=== PATIENT | male | born 1930 | race Caucasian/White ===

== ENCOUNTER 2016-09-24 15:39 | Inpatient (IN) | payer MEDICARE, OTHER ==
[~2016-09-24] VITALS: Ht 167.6 cm; Wt 51.7 kg
[~2016-09-24 15:39] MED LIST: ADVAIR 250/501 EA INH; AMBIEN5 MG PO; AMLODIPINE10 MG PO; ASPIRIN81 MG PO; AUGMENTIN 875 M1 TAB PO; CELLCEPT500 MG PO; CLARITIN10 MG PO; COREG25 MG PO; COUMADIN1 M1 PO; COUMADIN2 M1 PO; COUMADIN2 MG PO; COUMADIN5 M2 PO; COUMADIN5 MG PO; COUMADIN6 M2 PO; CYCLOSPORINE25 M2 PO; Coumadin5 MG PO; DIOVAN80 M1 PO; DULCOLAX5 MG PO; FERROUS SULFAT325 M1 PO; FLOMAX0.4 MG; FLONASE 0.05% 121 EA NAS; FLUDROCORTISON0.1 MG PO; FUROSEMIDE40 MG PO; GENGRAF PO; GENGRAF100 MG; GENGRAF100 MG PO; HYDROCODONE BIT1 T11 PO; HYTRIN2 MG PO; IRON325 M1 PO; LASIX80 MG PO; LEVAQUIN750 MG PO; LISINOPRIL10 M1 PO; LISINOPRIL20 MG PO; Lasix80 MG PO; MAG-OX 400400 MG PO; MAGNESIUM400 M1 PO; MIRALAX17 GM/DOSE PO; MOM30 M1 PO; MYCOPHENOLATE500 MG PO; MYCOPHENOLIC A360 M1 PO; NEORAL25 MG PO; OXYGEN NAS; PHOS-NAK1 PDR PO; PREVACID30 M1 PO; PROAIR HFA0.09 MG/AC INH; PROTONIX40 MG PO; REMERON15 M1 PO; TERAZOSIN1 MG PO; VIBRAMYCIN100 MG PO; WELCHOL625 MG PO; ZITHROMAX250 MG PO; ZOLOFT25 MG PO; ZYRTEC10 M1 PO; [UNRECOGNIZED DRUG - OTHER]
[2016-09-24 15:44] VITALS: BP 200/70
[2016-09-24 16:05] LABS: BASO % 0.2 % (0.0-1.0); EOS # 0.1 10*3/uL (0.0-0.4); EOS % 0.5 % (1.0-4.0); HEMATOCRIT 35.7 % (42.0-52.0); HEMOGLOBIN 11.1 g/dl (14.0-18.0); IG # 0.1 10*3/uL (0.0-0.1); LYMPH # 0.8 10*3/uL (1.3-4.4); LYMPH % 6.4 % (27.0-41.0); MEAN CELL VOLUME 99.2 fl (80.0-94.0); MEAN CORPUSCULAR HGB 30.8 pg (27.0-31.0); MEAN CORPUSCULAR HGB CONC 31.1 g/dl (33.0-37.0); MEAN PLATELET VOLUME 9.6 fl (9.6-12.3); MONO # 0.9 10*3/uL (0.1-1.0); MONO % 7.1 % (3.0-9.0); NEUT # 10.9 10*3/uL (2.3-7.9); NEUT % 85.3 % (47.0-73.0); PLATELET COUNT AUTOMATED 191 10*3/uL (130-400); RED CELL DISTRI WIDTH 14.2 % (0-14.5); WHITE BLOOD COUNT 12.8 10*3/uL (4.8-10.8)
[2016-09-24 16:14] LABS: INTERNATIONAL NORM RATIO 1.5 (2.0-3.5); PROTHROMBIN TIME 15.9 SECONDS (9.0-12.4)
[2016-09-24 16:22] LABS: ALBUMIN 3.5 gm/dl (3.1-4.5); BILIRUBIN, TOTAL 0.7 mg/dl (0.2-1.0); C-REACTIVE PROTEIN 2.67 MG/DL (0-0.3); CKMB 0.8 ng/ml (0.5-3.6); MAGNESIUM 1.4 mg/dL (1.5-2.1); POTASSIUM 3.7 mmol/L (3.5-5.1); TROPONIN I 0.02 ng/ml (<0.045)
[2016-09-24 18:54] VITALS: BP 149/57
[2016-09-25] VITALS: BP 137/50
[2016-09-25 06:31] LABS: BASO % 0.2 % (0.0-1.0); EOS % 0.2 % (1.0-4.0); HEMATOCRIT 31.3 % (42.0-52.0); HEMOGLOBIN 9.7 g/dl (14.0-18.0); IG # 0.1 10*3/uL (0.0-0.1); LYMPH # 1.1 10*3/uL (1.3-4.4); LYMPH % 9.6 % (27.0-41.0); MEAN CELL VOLUME 100.3 fl (80.0-94.0); MEAN CORPUSCULAR HGB 31.1 pg (27.0-31.0); MEAN PLATELET VOLUME 9.8 fl (9.6-12.3); MONO # 1.1 10*3/uL (0.1-1.0); MONO % 9.6 % (3.0-9.0); NEUT # 9.3 10*3/uL (2.3-7.9); NEUT % 79.8 % (47.0-73.0); PLATELET COUNT AUTOMATED 167 10*3/uL (130-400); RED BLOOD COUNT 3.12 10*6/uL (4.50-5.90); RED CELL DISTRI WIDTH 14.2 % (0-14.5); WHITE BLOOD COUNT 11.7 10*3/uL (4.8-10.8)
[2016-09-25 07:01] LABS: FREE T4 1.04 ng/dl (0.76-1.46); MAGNESIUM 2.3 mg/dL (1.5-2.1); PHOSPHOROUS 3.3 mg/dL (2.5-4.9)
[2016-09-25 07:04] LABS: INTERNATIONAL NORM RATIO 1.4 (2.0-3.5); PROTHROMBIN TIME 14.9 SECONDS (9.0-12.4)
[2016-09-25 07:08] LABS: THYROID STIM HORMONE (HS) 0.547 uIU/ml (0.358-4.75)
[2016-09-25 07:23] LABS: FOLIC ACID 10.22 ng/mL (>5.38); VITAMIN D, 25-HYDROXY 9.4 ng/mL (30-100)
[2016-09-25 07:55] VITALS: BP 135/47
[2016-09-25] MEDS ORDERED: COUMADIN1 M1 PO (10:16)
[2016-09-25] MEDS ORDERED: COUMADIN6 M2 PO (10:16)
[2016-09-25 11:47] VITALS: BP 130/46
[2016-09-25] MEDS ORDERED: COUMADIN7.5 M1 PO (11:51)
== END 2016-09-25 13:20 | disposition home or self-care (01) | DRG 871 ==
LOC: ED 15:39 → EDHOLD 17:58 → 4E 18:26
PROVIDERS: Emergency Medicine; Internal Medicine
DX: A41.9 Sepsis, unspecified organism (principal); N18.6 End stage renal disease; I13.2 Hypertensive heart and chronic kidney disease with heart failure and with stage 5 chronic kidney disease, or end stage renal disease; D68.59 Other primary thrombophilia; E87.8 Other disorders of electrolyte and fluid balance, not elsewhere classified; E83.42 Hypomagnesemia; K74.60 Unspecified cirrhosis of liver; I50.32 Chronic diastolic (congestive) heart failure; I48.0 Paroxysmal atrial fibrillation; K21.9 Gastro-esophageal reflux disease without esophagitis; E78.5 Hyperlipidemia, unspecified; Z96.1 Presence of intraocular lens; K52.9 Noninfective gastroenteritis and colitis, unspecified; N40.1 Benign prostatic hyperplasia with lower urinary tract symptoms; D53.9 Nutritional anemia, unspecified; R73.9 Hyperglycemia, unspecified; Z90.49 Acquired absence of other specified parts of digestive tract; Z83.3 Family history of diabetes mellitus; Z80.8 Family history of malignant neoplasm of other organs or systems; Z82.49 Family history of ischemic heart disease and other diseases of the circulatory system; Z82.0 Family history of epilepsy and other diseases of the nervous system; Z98.49 Cataract extraction status, unspecified eye; Z86.718 Personal history of other venous thrombosis and embolism; Z79.01 Long term (current) use of anticoagulants; Z79.899 Other long term (current) drug therapy; Z86.73 Personal history of transient ischemic attack (TIA), and cerebral infarction without residual deficits; T62.91XA Toxic effect of unspecified noxious substance eaten as food, accidental (unintentional), initial encounter; R11.2 Nausea with vomiting, unspecified

== ENCOUNTER 2016-10-04 10:15 | Inpatient (IN) | payer MEDICARE, OTHER ==
[~2016-10-04] VITALS: Ht 167.6 cm; Wt 51.0 kg
[~2016-10-04 10:15] MED LIST changes: +COUMADIN7.5 M1 PO
[2016-10-04 10:23] VITALS: BP 106/40
[2016-10-04 11:38] LABS: BASO % 0.2 % (0.0-1.0); HEMATOCRIT 35.4 % (42.0-52.0); IG # 0.1 10*3/uL (0.0-0.1); LYMPH # 0.9 10*3/uL (1.3-4.4); LYMPH % 6.7 % (27.0-41.0); MEAN CELL VOLUME 97.8 fl (80.0-94.0); MEAN CORPUSCULAR HGB 30.4 pg (27.0-31.0); MEAN CORPUSCULAR HGB CONC 31.1 g/dl (33.0-37.0); MEAN PLATELET VOLUME 9.3 fl (9.6-12.3); MONO # 0.9 10*3/uL (0.1-1.0); MONO % 7.3 % (3.0-9.0); NEUT # 10.8 10*3/uL (2.3-7.9); NEUT % 85.2 % (47.0-73.0); PLATELET COUNT AUTOMATED 266 10*3/uL (130-400); RED BLOOD COUNT 3.62 10*6/uL (4.50-5.90); RED CELL DISTRI WIDTH 13.4 % (0-14.5); WHITE BLOOD COUNT 12.7 10*3/uL (4.8-10.8)
[2016-10-04 11:47] LABS: INTERNATIONAL NORM RATIO 2.7 (2.0-3.5); PROTHROMBIN TIME 30.8 SECONDS (9.0-12.4)
[2016-10-04 11:57] LABS: ALBUMIN 3.2 gm/dl (3.1-4.5); ALKALINE PHOSPHATASE 124 U/L (45-117); BILIRUBIN, TOTAL 0.8 mg/dl (0.2-1.0); BUN 19 mg/dl (7-24); CARBON DIOXIDE 32 mmol/L (21-32); CHLORIDE 94 mmol/L (98-107); EST GLOM FILT AFRICAN AMERICAN 34 ml/min; GLUCOSE 97 mg/dL (65-99); MAGNESIUM 1.6 mg/dL (1.5-2.1); POTASSIUM 4.2 mmol/L (3.5-5.1); SGOT/AST 19 IU/L (3-35); SGPT/ALT 16 U/L (12-78); SODIUM 136 mmol/L (136-145); TOTAL PROTEIN 8.7 gm/dL (6.4-8.2)
[2016-10-04 12:00] LABS: TROPONIN I < 0.015 ng/ml (<0.045)
[2016-10-04 12:03] LABS: THYROID STIM HORMONE (HS) 0.392 uIU/ml (0.358-4.75)
[2016-10-04 13:13] VITALS: BP 111/55
[2016-10-04 13:55] VITALS: BP 126/60
[2016-10-04 14:00] VITALS: BP 142/50
[2016-10-04 16:00] VITALS: BP 134/80
[2016-10-04 20:00] VITALS: BP 140/51
[2016-10-05] VITALS: BP 134/53
[2016-10-05 06:50] LABS: BASO % 0.2 % (0.0-1.0); EOS % 0.2 % (1.0-4.0); HEMATOCRIT 30.1 % (42.0-52.0); HEMOGLOBIN 9.2 g/dl (14.0-18.0); IG # 0.1 10*3/uL (0.0-0.1); LYMPH # 0.8 10*3/uL (1.3-4.4); LYMPH % 5.7 % (27.0-41.0); MEAN CORPUSCULAR HGB 30.3 pg (27.0-31.0); MEAN CORPUSCULAR HGB CONC 30.6 g/dl (33.0-37.0); MEAN PLATELET VOLUME 9.4 fl (9.6-12.3); MONO # 0.9 10*3/uL (0.1-1.0); MONO % 6.7 % (3.0-9.0); NEUT # 11.4 10*3/uL (2.3-7.9); NEUT % 86.6 % (47.0-73.0); PLATELET COUNT AUTOMATED 268 10*3/uL (130-400); RED BLOOD COUNT 3.04 10*6/uL (4.50-5.90); RED CELL DISTRI WIDTH 13.6 % (0-14.5); WHITE BLOOD COUNT 13.2 10*3/uL (4.8-10.8)
[2016-10-05 07:05] LABS: ALBUMIN 2.7 gm/dl (3.1-4.5); BILIRUBIN, TOTAL 0.6 mg/dl (0.2-1.0); MAGNESIUM 1.4 mg/dL (1.5-2.1); PHOSPHOROUS 3.1 mg/dL (2.5-4.9); POTASSIUM 4.6 mmol/L (3.5-5.1); TOTAL PROTEIN 7.3 gm/dL (6.4-8.2)
[2016-10-05 07:21] LABS: INTERNATIONAL NORM RATIO 3.4 (2.0-3.5); PROTHROMBIN TIME 38.9 SECONDS (9.0-12.4)
[2016-10-05 08:00] VITALS: BP 152/53
[2016-10-05] MEDS ORDERED: CYCLOSPORINE25 M2 PO (08:55)
[2016-10-05 09:58] LABS: BILIRUBIN NEGATIVE (NEGATIVE); BLOOD 1+ (NEGATIVE); CLARITY CLEAR (CLEAR); COLOR YELLOW (YELLOW); GLUCOSE NEGATIVE (NEGATIVE); KETONE NEGATIVE (NEGATIVE); LEUKO ESTERASE TRACE (NEGATIVE); NITRITE NEGATIVE (NEGATIVE); PH 7.5 (5.0-9.0); PROTEIN 2+ (NEGATIVE); SPECIFIC GRAVITY <= 1.005 (1.005-1.030)
[2016-10-05 10:15] LABS: BACTERIA 1+; RBC 16-20 rbc/hpf (0-2); URINE REFLEX COMMENT YES (NO)
[2016-10-05 12:00] VITALS: BP 151/54
[2016-10-05 16:00] VITALS: BP 131/86
[2016-10-05 20:00] VITALS: BP 145/49
[2016-10-06] VITALS: BP 127/58
[2016-10-06 06:41] LABS: BASO % 0.2 % (0.0-1.0); EOS # 0.1 10*3/uL (0.0-0.4); HEMATOCRIT 30.3 % (42.0-52.0); HEMOGLOBIN 9.3 g/dl (14.0-18.0); IG # 0.1 10*3/uL (0.0-0.1); MEAN CELL VOLUME 99.7 fl (80.0-94.0); MEAN CORPUSCULAR HGB 30.6 pg (27.0-31.0); MEAN CORPUSCULAR HGB CONC 30.7 g/dl (33.0-37.0); MEAN PLATELET VOLUME 9.6 fl (9.6-12.3); MONO % 9.5 % (3.0-9.0); NEUT # 8.5 10*3/uL (2.3-7.9); NEUT % 79.8 % (47.0-73.0); PLATELET COUNT AUTOMATED 293 10*3/uL (130-400); RED BLOOD COUNT 3.04 10*6/uL (4.50-5.90); RED CELL DISTRI WIDTH 13.5 % (0-14.5); WHITE BLOOD COUNT 10.7 10*3/uL (4.8-10.8)
[2016-10-06 07:01] LABS: ALBUMIN 2.5 gm/dl (3.1-4.5); MAGNESIUM 1.7 mg/dL (1.5-2.1); PHOSPHOROUS 3.3 mg/dL (2.5-4.9); POTASSIUM 4.4 mmol/L (3.5-5.1)
[2016-10-06 08:00] VITALS: BP 128/52; BP 134/80
[2016-10-06 09:34] LABS: PROTHROMBIN TIME 70.1 SECONDS (9.0-12.4)
[2016-10-06 09:37] LABS: INTERNATIONAL NORM RATIO 5.9 (2.0-3.5)
[2016-10-06 12:00] VITALS: BP 134/50
[2016-10-06 16:00] VITALS: BP 140/54
[2016-10-06 20:00] VITALS: BP 134/54
[2016-10-07] VITALS: BP 144/61
[2016-10-07 06:27] LABS: ALBUMIN 2.3 gm/dl (3.1-4.5); PHOSPHOROUS 2.5 mg/dL (2.5-4.9); POTASSIUM 4.1 mmol/L (3.5-5.1)
[2016-10-07 06:36] LABS: INTERNATIONAL NORM RATIO 4.4 (2.0-3.5); PROTHROMBIN TIME 51.6 SECONDS (9.0-12.4)
[2016-10-07 08:00] VITALS: BP 160/58
== END 2016-10-07 11:45 | disposition home or self-care (01) | DRG 871 ==
LOC: ED 10:15 → EDHOLD 13:32 → 4E 13:32
PROVIDERS: Emergency Medicine; Internal Medicine; Internal Medicine Hospice and Palliative Medicine
PROC: 5A1D60Z (ICD-10-PCS; principal; 2016-10-04)
DX: A41.9 Sepsis, unspecified organism (principal); J18.9 Pneumonia, unspecified organism; E43 Unspecified severe protein-calorie malnutrition; I13.2 Hypertensive heart and chronic kidney disease with heart failure and with stage 5 chronic kidney disease, or end stage renal disease; N18.6 End stage renal disease; D68.59 Other primary thrombophilia; Z94.4 Liver transplant status; I48.0 Paroxysmal atrial fibrillation; I50.32 Chronic diastolic (congestive) heart failure; K74.60 Unspecified cirrhosis of liver; Z68.1 Body mass index [BMI] 19.9 or less, adult; E78.5 Hyperlipidemia, unspecified; K21.9 Gastro-esophageal reflux disease without esophagitis; D63.8 Anemia in other chronic diseases classified elsewhere; D53.9 Nutritional anemia, unspecified; Z96.1 Presence of intraocular lens; F32.9 Major depressive disorder, single episode, unspecified; N40.1 Benign prostatic hyperplasia with lower urinary tract symptoms; E55.9 Vitamin D deficiency, unspecified; Z86.73 Personal history of transient ischemic attack (TIA), and cerebral infarction without residual deficits; Z90.49 Acquired absence of other specified parts of digestive tract; Z95.2 Presence of prosthetic heart valve; Z98.49 Cataract extraction status, unspecified eye; Z87.891 Personal history of nicotine dependence; Z86.718 Personal history of other venous thrombosis and embolism; Z79.01 Long term (current) use of anticoagulants; Z79.899 Other long term (current) drug therapy

== ENCOUNTER → 2016-11-08 | Outpatient (CLI) | payer MEDICARE, OTHER ==
[2016-11-08 06:32] LABS: INTERNATIONAL NORM RATIO 1.6 (2.0-3.5); PROTHROMBIN TIME 17.4 SECONDS (9.0-12.4)
== END | disposition home or self-care (01) ==
LOC: LAB 05:16
PROVIDERS: Family Medicine Adult Medicine
DX: I48.91 Unspecified atrial fibrillation (principal)

== ENCOUNTER → 2017-01-05 | Outpatient (CLI) | payer MEDICARE, OTHER ==
[~2017-01-05] MED LIST changes: +ZOFRAN ODT4 MG SL
== END | disposition home or self-care (01) ==
LOC: RAD 09:39
DX: J90 Pleural effusion, not elsewhere classified (principal); I50.32 Chronic diastolic (congestive) heart failure; Z87.891 Personal history of nicotine dependence

== ENCOUNTER 2017-01-06 13:59 | Emergency (ER) | payer MEDICARE, OTHER ==
[~2017-01-06] VITALS: Ht 167.6 cm; Wt 53.1 kg
[~2017-01-06 13:59] MED LIST changes: -ZOFRAN ODT4 MG SL
[2017-01-06 14:35] LABS: BASO % 0.2 % (0.0-1.0); EOS # 0.1 10*3/uL (0.0-0.4); EOS % 1.2 % (1.0-4.0); HEMATOCRIT 36.5 % (42.0-52.0); HEMOGLOBIN 11.4 g/dl (14.0-18.0); LYMPH # 1.6 10*3/uL (1.3-4.4); LYMPH % 17.2 % (27.0-41.0); MEAN CELL VOLUME 100.6 fl (80.0-94.0); MEAN CORPUSCULAR HGB 31.4 pg (27.0-31.0); MEAN CORPUSCULAR HGB CONC 31.2 g/dl (33.0-37.0); MEAN PLATELET VOLUME 9.6 fl (9.6-12.3); MONO # 0.9 10*3/uL (0.1-1.0); MONO % 9.5 % (3.0-9.0); NEUT # 6.8 10*3/uL (2.3-7.9); NEUT % 71.6 % (47.0-73.0); PLATELET COUNT AUTOMATED 213 10*3/uL (130-400); RED BLOOD COUNT 3.63 10*6/uL (4.50-5.90); RED CELL DISTRI WIDTH 14.5 % (0-14.5); WHITE BLOOD COUNT 9.5 10*3/uL (4.8-10.8)
[2017-01-06 14:43] LABS: INTERNATIONAL NORM RATIO 2.2 (2.0-3.5)
[2017-01-06 14:55] LABS: ALBUMIN 3.4 gm/dl (3.1-4.5); CKMB 0.8 ng/ml (0.5-3.6); CREATININE 4.16 mg/dL (0.70-1.30); MAGNESIUM 2.4 mg/dL (1.5-2.1); POTASSIUM 4.6 mmol/L (3.5-5.1); TOTAL PROTEIN 8.4 gm/dL (6.4-8.2); TROPONIN I 0.019 ng/ml (<0.045)
[2017-01-06] MEDS ORDERED: ZOFRAN ODT4 MG SL (16:18)
== END 2017-01-06 16:54 | disposition home or self-care (01) ==
LOC: ED 13:59
PROVIDERS: Physician Assistant
DX: K52.9 Noninfective gastroenteritis and colitis, unspecified (principal); Z79.899 Other long term (current) drug therapy; Z79.02 Long term (current) use of antithrombotics/antiplatelets; Z87.891 Personal history of nicotine dependence

== ENCOUNTER 2017-02-07 15:28 | Emergency (ER) | payer MEDICARE, OTHER ==
[~2017-02-07] VITALS: Ht 167.6 cm; Wt 54.4 kg
[~2017-02-07 15:28] MED LIST changes: +ZOFRAN ODT4 MG SL
== END 2017-02-07 16:18 | disposition home or self-care (01) ==
LOC: ED 15:28
DX: Z48.00 Encounter for change or removal of nonsurgical wound dressing (principal); L98.8 Other specified disorders of the skin and subcutaneous tissue; Z90.49 Acquired absence of other specified parts of digestive tract; Z98.890 Other specified postprocedural states; Z79.01 Long term (current) use of anticoagulants; Z79.899 Other long term (current) drug therapy; Z87.891 Personal history of nicotine dependence

== ENCOUNTER 2017-03-04 18:40 | Inpatient (IN) | payer MEDICARE, OTHER ==
[~2017-03-04] VITALS: Ht 167.6 cm; Wt 50.8 kg
--- NOTE | ~2017-03-04 | CON ---
[place], [place] REPORT OF CONSULTATION NAME: SCOTT OTTO [facility] #: [id number] UNIT #: [id number] ROOM: 409 DOCTOR: DELROY MCGUIRE MD BIRTHDATE: [birth year] DOS: 03/05/2017 REASON FOR CONSULTATION: Management of dialysis/patient known to you. HISTORY OF PRESENT ILLNESS: This patient is an 87-year-old male with past medical history of end-stage renal disease. He is on hemodialysis Tuesday, Tuesday and Tuesday at [facility] in [place] under the care of our practice. He has a history of anemia, cirrhosis, status post orthotopic liver transplant as well as hypertension. I am not clear of the details, but it seems after dialysis the patient had not been feeling well and had a brief unresponsive episodes. I discussed with the dialysis nurse today that his treatment went without difficulty. Apparently, he was admitted overnight and there were concerns that the patient was septic. He was started on a number of antibiotics, although he did not appear to have a fever and his white count was normal. It seems he had a CAT scan of the chest, which showed questionable pneumonia. He was admitted for further evaluation. He currently is awake and alert and looks fairly well. He denied any complaints to me. He denied cough, shortness of breath, fevers, chills, night sweats or chest pain. He denied nausea, vomiting or diarrhea. He states his appetite is fair. ALLERGIES: No known drug allergies. MEDICATIONS: Reviewed and included cyclosporine, CellCept, lisinopril, Coreg, Coumadin to name a few. PAST MEDICAL HISTORY: 1. End-stage renal disease, on hemodialysis as stated above. 2. Anemia. 3. BPH. 4. Diastolic dysfunction. 5. Depression. 6. Upper extremity AV fistula. 7. Hypertension. 8. GERD. 9. History of TIA. 10. Hyperlipidemia. 11. Interstitial fibrosis. 12. Paroxysmal atrial fibrillation. 13. Status sort of orthotopic liver transplant. 14. Adenoidectomy. 15. Appendectomy. 16. Tonsillectomy. 17. Cataract extraction. FAMILY HISTORY: Negative for chronic kidney disease, otherwise noncontributory. Noted positive for diabetes. SOCIAL HISTORY: No reported tobacco, alcohol or illicit drugs. He does have a history of previous tobacco abuse. [place], [place] REPORT OF CONSULTATION NAME: SCOTT OTTO UNIT #: [id number] ROOM: 409 DOCTOR: MAYNOR HEATONDELROY Anne BIRTHDATE: [birth year] REVIEW OF SYSTEMS: As per HPI, otherwise a 10-point review of systems was reviewed and was negative or limited. PHYSICAL EXAMINATION: VITAL SIGNS: Temperature 98.4, pulse 75, respiratory rate 16, blood pressure 112/44. GENERAL: He is awake, alert, comfortable, in no acute distress. HEENT: Shows no JVD. Sclerae are anicteric. Mucous membranes are moist. Pharynx is clear. NECK: Supple. Trachea is midline. There is no neck lymphadenopathy. There is no thyromegaly. LUNGS: Diminished breath sounds, appreciable wheeze. There is no tactile fremitus. He is not using accessory muscles of respiration. HEART: Normal S1, S2. No rub, thrill or gallop. ABDOMEN: Soft, nontender. There is no organomegaly or rigidity. There is no rebound or guarding. There is no CVA tenderness. EXTREMITIES: Had no edema. There is no lower extremity lymphadenopathy. Distal pulses are 2+. SKIN: Showed no rashes. There was no petechiae or purpura. Skin temperature is warm. NEUROLOGIC: He is awake, alert, following commands. Cranial nerves appeared to be intact. LABORATORY DATA: Hemoglobin 10.4, white count of 9.2, platelets 174. Glucose 95, BUN 29, creatinine 3.5, sodium 135, potassium 4.0, calcium 8.3. IMPRESSION: 1. End-stage renal disease, on hemodialysis Tuesday, Tuesday and Tuesday through an upper extremity arteriovenous fistula. 2. Questionable pneumonia. 3. Anemia of chronic disease. 4. Hypertension. 5. Status post orthotopic liver transplant. PLAN: 1. Continue home medications. 2. Dose meds for end-stage renal disease. 3. Standard renal diet. 4. We will continue the patient his normal dialysis schedule. 5. The patient appears to be stable. There is no obvious infection noted with a normal white count. No fever. He has been started on broad-spectrum antibiotics. Would recommend discharge from the hospital. Thank you for this consultation. [place], [place] REPORT OF CONSULTATION NAME: SCOTT OTTO UNIT #: [id number] ROOM: 409 DOCTOR: DELROY MCGUIRE MD BIRTHDATE: [birth year] DELROY MCGUIRE MD CM:CONSTR:REPORT OF CONSULTATION [id number] 03/05/17 1600 interface
--- NOTE | ~2017-03-04 | PR ---
[place], [place] PROGRESS NOTE [id number] UN[facility] #: [id number] ROOM: 409 DOCTOR: DELROY MCGUIRE MD BIRTHDATE: [birth year] DOS: SUBJECTIVE: The patient was seen and examined. He is awake and alert. Denies shortness of breath, nausea or vomiting. States he feels well. OBJECTIVE: VITAL SIGNS: Temperature 98.2, pulse 79, respiration 20, blood pressure 150/56. HEENT: Shows no JVD. LUNGS: Diminished breath sounds with occasional wheeze. HEART: Normal S1, S2. No rub, thrill or gallop. ABDOMEN: Soft, nontender. There is no organomegaly. EXTREMITIES: Showed no edema. SKIN: Showed no rash. LABORATORY DATA: Blood cultures are negative to date. Hemoglobin 9.4, white count of 5.7, platelets of 150. BUN 48, creatinine 4.5, sodium 133, potassium 4.5, carbon dioxide 24, calcium 8.7. IMPRESSION: 1. End-stage renal disease on hemodialysis Tuesday, Tuesday, Tuesday through upper extremity AV fistula. 2. Questionable pneumonia. 3. Anemia of chronic disease. 4. Hypertension. 5. Status post orthotopic liver transplant. PLAN: 1. We will plan for dialysis tomorrow. 2. Dose medications for end-stage renal disease. 3. We will give Epogen with dialysis. 4. Continue regular medications. 5. Antibiotics per the primary service. DELROY MCGUIRE MD CM:PNTRANS [id number] DELROY MCGUIRE MD 03/06/17 1714 interface
[2017-03-04 18:48] VITALS: BP 129/54
[2017-03-04 19:24] LABS: BASO % 0.1 % (0.0-1.0); HEMATOCRIT 37.2 % (42.0-52.0); HEMOGLOBIN 11.6 g/dl (14.0-18.0); LYMPH # 0.5 10*3/uL (1.3-4.4); MEAN CORPUSCULAR HGB 31.2 pg (27.0-31.0); MEAN CORPUSCULAR HGB CONC 31.2 g/dl (33.0-37.0); MEAN PLATELET VOLUME 10.4 fl (9.6-12.3); MONO # 1.1 10*3/uL (0.1-1.0); MONO % 8.4 % (3.0-9.0); NEUT # 11.7 10*3/uL (2.3-7.9); NEUT % 86.9 % (47.0-73.0); PLATELET COUNT AUTOMATED 202 10*3/uL (130-400); RED BLOOD COUNT 3.72 10*6/uL (4.50-5.90); RED CELL DISTRI WIDTH 14.1 % (0-14.5); WHITE BLOOD COUNT 13.5 10*3/uL (4.8-10.8)
[2017-03-04 20:00] LABS: ALBUMIN 3.2 gm/dl (3.1-4.5); CREATININE 2.8 mg/dL (0.70-1.30); TOTAL PROTEIN 7.5 gm/dL (6.4-8.2); TROPONIN I 0.035 ng/ml (<0.045)
[2017-03-04 21:30] VITALS: BP 104/46
[2017-03-04 22:00] VITALS: BP 103/52
[2017-03-04 22:59] LABS: BILIRUBIN NEGATIVE (NEGATIVE); BLOOD NEGATIVE (NEGATIVE); CLARITY SL CLOUDY (CLEAR); COLOR YELLOW (YELLOW); GLUCOSE NEGATIVE (NEGATIVE); KETONE NEGATIVE (NEGATIVE); LEUKO ESTERASE TRACE (NEGATIVE); NITRITE NEGATIVE (NEGATIVE); UROBILINOGEN 0.2 E.U./dl (0.2-1.0)
[2017-03-04 23:00] VITALS: BP 110/40
[2017-03-04 23:06] LABS: BACTERIA TRACE
[2017-03-05 00:24] LABS: INTERNATIONAL NORM RATIO 1.9 (2.0-3.5)
[2017-03-05 06:17] LABS: BASO % 0.2 % (0.0-1.0); EOS % 0.1 % (1.0-4.0); HEMATOCRIT 33.4 % (42.0-52.0); HEMOGLOBIN 10.4 g/dl (14.0-18.0); LYMPH # 0.6 10*3/uL (1.3-4.4); LYMPH % 6.9 % (27.0-41.0); MEAN CELL VOLUME 99.4 fl (80.0-94.0); MEAN CORPUSCULAR HGB CONC 31.1 g/dl (33.0-37.0); MEAN PLATELET VOLUME 10.2 fl (9.6-12.3); MONO # 0.6 10*3/uL (0.1-1.0); MONO % 6.9 % (3.0-9.0); NEUT # 7.8 10*3/uL (2.3-7.9); NEUT % 85.2 % (47.0-73.0); PLATELET COUNT AUTOMATED 174 10*3/uL (130-400); RED BLOOD COUNT 3.36 10*6/uL (4.50-5.90); RED CELL DISTRI WIDTH 14.3 % (0-14.5); WHITE BLOOD COUNT 9.2 10*3/uL (4.8-10.8)
[2017-03-05 06:47] LABS: CREATININE 3.48 mg/dL (0.70-1.30); PHOSPHOROUS 2.4 mg/dL (2.5-4.9)
[2017-03-05 06:49] LABS: ACT PARTIAL THROMBO TIME 40.1 SECONDS (20.8-31.5)
[2017-03-05 06:53] LABS: THYROID STIM HORMONE (HS) 0.452 uIU/ml (0.358-4.75)
[2017-03-05 08:00] VITALS: BP 112/44
[2017-03-05 08:22] LABS: VITAMIN D, 25-HYDROXY 58.5 ng/mL (30-100)
[2017-03-05 12:00] VITALS: BP 118/50
[2017-03-05 16:00] VITALS: BP 132/50
[2017-03-05 20:00] VITALS: BP 148/51
[2017-03-06] VITALS: BP 135/55
[2017-03-06 06:30] LABS: BASO % 0.2 % (0.0-1.0); EOS # 0.1 10*3/uL (0.0-0.4); EOS % 1.6 % (1.0-4.0); HEMATOCRIT 29.9 % (42.0-52.0); HEMOGLOBIN 9.4 g/dl (14.0-18.0); LYMPH # 0.8 10*3/uL (1.3-4.4); LYMPH % 13.5 % (27.0-41.0); MEAN CORPUSCULAR HGB 30.8 pg (27.0-31.0); MEAN CORPUSCULAR HGB CONC 31.4 g/dl (33.0-37.0); MEAN PLATELET VOLUME 10.1 fl (9.6-12.3); MONO # 0.8 10*3/uL (0.1-1.0); MONO % 13.3 % (3.0-9.0); NEUT # 4.1 10*3/uL (2.3-7.9); NEUT % 70.9 % (47.0-73.0); PLATELET COUNT AUTOMATED 150 10*3/uL (130-400); RED BLOOD COUNT 3.05 10*6/uL (4.50-5.90); RED CELL DISTRI WIDTH 13.9 % (0-14.5); WHITE BLOOD COUNT 5.7 10*3/uL (4.8-10.8)
[2017-03-06 07:04] LABS: CREATININE 4.5 mg/dL (0.70-1.30); POTASSIUM 4.5 mmol/L (3.5-5.1)
[2017-03-06 07:14] LABS: INTERNATIONAL NORM RATIO 1.9 (2.0-3.5)
[2017-03-06 08:00] VITALS: BP 150/56
[2017-03-06 12:00] VITALS: BP 144/54
[2017-03-06 16:00] VITALS: BP 129/75
[2017-03-06 20:00] VITALS: BP 150/41
[2017-03-06 20:23] VITALS: BP 150/58
[2017-03-07] VITALS: BP 145/77
[2017-03-07 06:29] LABS: BASO % 0.2 % (0.0-1.0); EOS # 0.1 10*3/uL (0.0-0.4); HEMATOCRIT 30.8 % (42.0-52.0); HEMOGLOBIN 9.6 g/dl (14.0-18.0); LYMPH % 18.3 % (27.0-41.0); MEAN CELL VOLUME 100.3 fl (80.0-94.0); MEAN CORPUSCULAR HGB 31.3 pg (27.0-31.0); MEAN CORPUSCULAR HGB CONC 31.2 g/dl (33.0-37.0); MEAN PLATELET VOLUME 10.2 fl (9.6-12.3); MONO # 0.8 10*3/uL (0.1-1.0); NEUT # 3.6 10*3/uL (2.3-7.9); NEUT % 64.8 % (47.0-73.0); PLATELET COUNT AUTOMATED 184 10*3/uL (130-400); RED BLOOD COUNT 3.07 10*6/uL (4.50-5.90); RED CELL DISTRI WIDTH 13.9 % (0-14.5); WHITE BLOOD COUNT 5.6 10*3/uL (4.8-10.8)
[2017-03-07 06:46] LABS: ALBUMIN 2.5 gm/dl (3.1-4.5); CREATININE 5.39 mg/dL (0.70-1.30); TOTAL PROTEIN 7.1 gm/dL (6.4-8.2)
[2017-03-07 07:05] LABS: INTERNATIONAL NORM RATIO 2.2 (2.0-3.5)
[2017-03-07 08:00] VITALS: BP 142/88
[2017-03-07 16:00] VITALS: BP 151/54
[2017-03-07 19:30] VITALS: BP 151/51
[2017-03-08] VITALS: BP 157/49
[2017-03-08 07:22] LABS: INTERNATIONAL NORM RATIO 2.6 (2.0-3.5)
[2017-03-08 08:00] VITALS: BP 152/58
[2017-03-08 12:00] VITALS: BP 150/60
[2017-03-08] MEDS ORDERED: LEVAQUIN750 M1 PO (12:54)
== END 2017-03-08 14:12 | disposition home or self-care (01) | DRG 871 ==
LOC: ED 18:40 → 4E 21:44 → EDHOLD 21:44 → 4E 21:54
PROVIDERS: Internal Medicine; Nurse Practitioner Family; ADMIT Internal Medicine
PROC: 5A1D70Z Performance of Urinary Filtration, Intermittent, Less than 6 Hours Per Day (ICD-10-PCS; principal; 2017-03-07)
DX: A41.9 Sepsis, unspecified organism (principal); E43 Unspecified severe protein-calorie malnutrition; I13.2 Hypertensive heart and chronic kidney disease with heart failure and with stage 5 chronic kidney disease, or end stage renal disease; D84.9 Immunodeficiency, unspecified; J18.9 Pneumonia, unspecified organism; Z94.4 Liver transplant status; D68.59 Other primary thrombophilia; E87.8 Other disorders of electrolyte and fluid balance, not elsewhere classified; N18.6 End stage renal disease; I50.32 Chronic diastolic (congestive) heart failure; E87.1 Hypo-osmolality and hyponatremia; Z68.1 Body mass index [BMI] 19.9 or less, adult; I48.0 Paroxysmal atrial fibrillation; E55.9 Vitamin D deficiency, unspecified; K74.60 Unspecified cirrhosis of liver; K52.9 Noninfective gastroenteritis and colitis, unspecified; D63.8 Anemia in other chronic diseases classified elsewhere; E78.5 Hyperlipidemia, unspecified; K21.9 Gastro-esophageal reflux disease without esophagitis; Y95 Nosocomial condition; N40.0 Benign prostatic hyperplasia without lower urinary tract symptoms; Z96.1 Presence of intraocular lens; Z99.2 Dependence on renal dialysis; Z79.01 Long term (current) use of anticoagulants; Z86.718 Personal history of other venous thrombosis and embolism; Z86.73 Personal history of transient ischemic attack (TIA), and cerebral infarction without residual deficits; Z98.49 Cataract extraction status, unspecified eye; Z87.891 Personal history of nicotine dependence; Z82.49 Family history of ischemic heart disease and other diseases of the circulatory system; Z80.8 Family history of malignant neoplasm of other organs or systems; Z82.0 Family history of epilepsy and other diseases of the nervous system; Z79.899 Other long term (current) drug therapy

== ENCOUNTER 2017-06-01 15:45 | Inpatient (IN) | payer MEDICARE, OTHER ==
[~2017-06-01] VITALS: Ht 167.6 cm; Wt 54.5 kg
[2017-06-01 15:45] VITALS: BP 124/53
[~2017-06-01 15:45] MED LIST changes: +LEVAQUIN750 M1 PO
[2017-06-01 16:28] LABS: BASO % 0.1 % (0.0-1.0); EOS % 0.1 % (1.0-4.0); HEMATOCRIT 40.5 % (42.0-52.0); HEMOGLOBIN 12.7 g/dl (14.0-18.0); LYMPH # 0.5 10*3/uL (1.3-4.4); LYMPH % 3.7 % (27.0-41.0); MEAN CELL VOLUME 97.8 fl (80.0-94.0); MEAN CORPUSCULAR HGB 30.7 pg (27.0-31.0); MEAN CORPUSCULAR HGB CONC 31.4 g/dl (33.0-37.0); MEAN PLATELET VOLUME 9.5 fl (9.6-12.3); MONO # 1.1 10*3/uL (0.1-1.0); MONO % 7.7 % (3.0-9.0); NEUT # 12.7 10*3/uL (2.3-7.9); PLATELET COUNT AUTOMATED 188 10*3/uL (130-400); RED BLOOD COUNT 4.14 10*6/uL (4.50-5.90); RED CELL DISTRI WIDTH 14.3 % (0-14.5); WHITE BLOOD COUNT 14.4 10*3/uL (4.8-10.8)
[2017-06-01 16:45] LABS: ALBUMIN 3.6 gm/dl (3.1-4.5); CREATININE 3.11 mg/dL (0.70-1.30); POTASSIUM 4.5 mmol/L (3.5-5.1); TOTAL PROTEIN 8.6 gm/dL (6.4-8.2)
[2017-06-01 16:49] LABS: TROPONIN I 0.048 ng/ml (<0.045)
[2017-06-01 17:32] VITALS: BP 132/60
[2017-06-01 19:29] VITALS: BP 128/58
[2017-06-01 20:20] VITALS: BP 104/36
[2017-06-01 20:40] LABS: INTERNATIONAL NORM RATIO 1.5 (2.0-3.5)
[2017-06-02] VITALS: BP 120/88
[2017-06-02 06:38] LABS: BILIRUBIN NEGATIVE (NEGATIVE); BLOOD NEGATIVE (NEGATIVE); CLARITY CLEAR (CLEAR); COLOR YELLOW (YELLOW); GLUCOSE NEGATIVE (NEGATIVE); KETONE TRACE (NEGATIVE); LEUKO ESTERASE NEGATIVE (NEGATIVE); NITRITE NEGATIVE (NEGATIVE); PH 8.5 (5.0-9.0); UROBILINOGEN 0.2 E.U./dl (0.2-1.0)
[2017-06-02 06:39] LABS: BASO % 0.1 % (0.0-1.0); EOS % 0.2 % (1.0-4.0); HEMATOCRIT 37.3 % (42.0-52.0); HEMOGLOBIN 11.6 g/dl (14.0-18.0); LYMPH # 1.4 10*3/uL (1.3-4.4); LYMPH % 10.2 % (27.0-41.0); MEAN CELL VOLUME 99.5 fl (80.0-94.0); MEAN CORPUSCULAR HGB 30.9 pg (27.0-31.0); MEAN CORPUSCULAR HGB CONC 31.1 g/dl (33.0-37.0); MEAN PLATELET VOLUME 9.7 fl (9.6-12.3); MONO # 1.3 10*3/uL (0.1-1.0); MONO % 9.5 % (3.0-9.0); NEUT # 10.9 10*3/uL (2.3-7.9); NEUT % 79.4 % (47.0-73.0); PLATELET COUNT AUTOMATED 176 10*3/uL (130-400); RED BLOOD COUNT 3.75 10*6/uL (4.50-5.90); RED CELL DISTRI WIDTH 14.6 % (0-14.5); WHITE BLOOD COUNT 13.7 10*3/uL (4.8-10.8)
[2017-06-02 06:43] LABS: ACT PARTIAL THROMBO TIME 35.7 SECONDS (20.8-31.5); INTERNATIONAL NORM RATIO 1.6 (2.0-3.5)
[2017-06-02 06:50] LABS: BACTERIA TRACE; HYALINE CAST 16-20
[2017-06-02 07:11] LABS: CREATININE 4.03 mg/dL (0.70-1.30); PHOSPHOROUS 3.5 mg/dL (2.5-4.9); POTASSIUM 4.9 mmol/L (3.5-5.1); TOTAL PROTEIN 7.7 gm/dL (6.4-8.2)
[2017-06-02 07:34] LABS: THYROID STIM HORMONE (HS) 0.524 uIU/ml (0.358-4.75)
[2017-06-02 08:00] VITALS: BP 120/55
[2017-06-02 08:45] LABS: VITAMIN D, 25-HYDROXY 75.1 ng/mL (30-100)
[2017-06-02 12:00] VITALS: BP 139/48
== END 2017-06-02 13:30 | disposition home or self-care (01) | DRG 312 ==
LOC: ED 15:45 → EDHOLD 18:44 → 5E 19:09
PROVIDERS: Hospitalist; Physician Assistant
DX: I95.3 Hypotension of hemodialysis (principal); I13.2 Hypertensive heart and chronic kidney disease with heart failure and with stage 5 chronic kidney disease, or end stage renal disease; D84.9 Immunodeficiency, unspecified; R65.10 Systemic inflammatory response syndrome (SIRS) of non-infectious origin without acute organ dysfunction; Z94.4 Liver transplant status; N18.6 End stage renal disease; J84.10 Pulmonary fibrosis, unspecified; I48.0 Paroxysmal atrial fibrillation; E87.1 Hypo-osmolality and hyponatremia; I50.30 Unspecified diastolic (congestive) heart failure; R53.83 Other fatigue; D63.8 Anemia in other chronic diseases classified elsewhere; I34.1 Nonrheumatic mitral (valve) prolapse; R41.82 Altered mental status, unspecified; E78.00 Pure hypercholesterolemia, unspecified; R74.8 Abnormal levels of other serum enzymes; N40.1 Benign prostatic hyperplasia with lower urinary tract symptoms; K74.60 Unspecified cirrhosis of liver; F32.9 Major depressive disorder, single episode, unspecified; K21.9 Gastro-esophageal reflux disease without esophagitis; Z90.89 Acquired absence of other organs; Z86.718 Personal history of other venous thrombosis and embolism; Z79.01 Long term (current) use of anticoagulants; Z90.49 Acquired absence of other specified parts of digestive tract; Z98.49 Cataract extraction status, unspecified eye; Z87.891 Personal history of nicotine dependence; Z80.8 Family history of malignant neoplasm of other organs or systems; Z83.3 Family history of diabetes mellitus; Z82.0 Family history of epilepsy and other diseases of the nervous system; Z99.2 Dependence on renal dialysis; Z79.899 Other long term (current) drug therapy

== ENCOUNTER → 2017-09-08 | Outpatient (CLI) | payer MEDICARE, OTHER ==
[2017-09-08 11:03] LABS: BASO % 0.2 % (0.0-1.0); EOS # 0.1 10*3/uL (0.0-0.4); EOS % 1.2 % (1.0-4.0); HEMATOCRIT 39.6 % (42.0-52.0); LYMPH # 1.9 10*3/uL (1.3-4.4); LYMPH % 22.9 % (27.0-41.0); MEAN CELL VOLUME 101.3 fl (80.0-94.0); MEAN CORPUSCULAR HGB 30.7 pg (27.0-31.0); MEAN CORPUSCULAR HGB CONC 30.3 g/dl (33.0-37.0); MEAN PLATELET VOLUME 9.5 fl (9.6-12.3); MONO % 12.7 % (3.0-9.0); NEUT # 5.1 10*3/uL (2.3-7.9); NEUT % 62.6 % (47.0-73.0); PLATELET COUNT AUTOMATED 210 10*3/uL (130-400); RED BLOOD COUNT 3.91 10*6/uL (4.50-5.90); RED CELL DISTRI WIDTH 13.7 % (0-14.5); WHITE BLOOD COUNT 8.2 10*3/uL (4.8-10.8)
[2017-09-08 11:27] LABS: CREATININE 4.49 mg/dL (0.70-1.30); POTASSIUM 5.3 mmol/L (3.5-5.1)
== END | disposition home or self-care (01) ==
LOC: LAB 10:38
PROVIDERS: Nurse Practitioner Primary Care
DX: I48.91 Unspecified atrial fibrillation (principal); R19.7 Diarrhea, unspecified

== ENCOUNTER 2018-01-20 09:49 | Emergency (ER) | payer MEDICARE, OTHER ==
[~2018-01-20] VITALS: Ht 167.6 cm; Wt 54.4 kg
[2018-01-20 10:28] LABS: BASO % 0.3 % (0.0-1.0); EOS % 0.7 % (1.0-4.0); HEMATOCRIT 35.9 % (42.0-52.0); HEMOGLOBIN 10.9 g/dl (14.0-18.0); LYMPH # 1.2 10*3/uL (1.3-4.4); LYMPH % 19.5 % (27.0-41.0); MEAN CELL VOLUME 100.8 fl (80.0-94.0); MEAN CORPUSCULAR HGB 30.6 pg (27.0-31.0); MEAN CORPUSCULAR HGB CONC 30.4 g/dl (33.0-37.0); MEAN PLATELET VOLUME 9.4 fl (9.6-12.3); MONO # 0.9 10*3/uL (0.1-1.0); MONO % 14.3 % (3.0-9.0); NEUT % 64.7 % (47.0-73.0); PLATELET COUNT AUTOMATED 188 10*3/uL (130-400); RED BLOOD COUNT 3.56 10*6/uL (4.50-5.90); RED CELL DISTRI WIDTH 13.6 % (0-14.5); WHITE BLOOD COUNT 6.2 10*3/uL (4.8-10.8)
[2018-01-20 10:36] LABS: ACT PARTIAL THROMBO TIME 32.1 SECONDS (20.8-31.5); INTERNATIONAL NORM RATIO 1.7 (2.0-3.5)
[2018-01-20 10:46] LABS: ALBUMIN 3.3 gm/dl (3.1-4.5); CREATININE 2.15 mg/dL (0.70-1.30); POTASSIUM 3.9 mmol/L (3.5-5.1); TOTAL PROTEIN 7.8 gm/dL (6.4-8.2)
[2018-01-20 10:47] LABS: TROPONIN I 0.021 ng/ml (<0.045)
== END 2018-01-20 11:29 | disposition home or self-care (01) ==
LOC: ED 09:49
PROVIDERS: Emergency Medicine
DX: T82.838A Hemorrhage due to vascular prosthetic devices, implants and grafts, initial encounter (principal); I50.30 Unspecified diastolic (congestive) heart failure; I13.2 Hypertensive heart and chronic kidney disease with heart failure and with stage 5 chronic kidney disease, or end stage renal disease; N18.6 End stage renal disease; K21.9 Gastro-esophageal reflux disease without esophagitis; I48.0 Paroxysmal atrial fibrillation; Z87.891 Personal history of nicotine dependence; Z79.899 Other long term (current) drug therapy; Z79.02 Long term (current) use of antithrombotics/antiplatelets

== ENCOUNTER 2018-03-22 14:24 | Emergency (ER) | payer MEDICARE, OTHER ==
[~2018-03-22] VITALS: Ht 167.6 cm; Wt 56.7 kg
[2018-03-22 15:12] LABS: BASO % 0.3 % (0.0-1.0); EOS % 0.5 % (1.0-4.0); HEMATOCRIT 32.2 % (42.0-52.0); HEMOGLOBIN 9.7 g/dl (14.0-18.0); LYMPH # 1.3 10*3/uL (1.3-4.4); LYMPH % 21.5 % (27.0-41.0); MEAN CELL VOLUME 100.9 fl (80.0-94.0); MEAN CORPUSCULAR HGB 30.4 pg (27.0-31.0); MEAN CORPUSCULAR HGB CONC 30.1 g/dl (33.0-37.0); MEAN PLATELET VOLUME 9.3 fl (9.6-12.3); MONO # 0.8 10*3/uL (0.1-1.0); MONO % 12.8 % (3.0-9.0); NEUT # 3.9 10*3/uL (2.3-7.9); NEUT % 64.6 % (47.0-73.0); PLATELET COUNT AUTOMATED 195 10*3/uL (130-400); RED BLOOD COUNT 3.19 10*6/uL (4.50-5.90); RED CELL DISTRI WIDTH 14.3 % (0-14.5)
[2018-03-22 15:23] LABS: INTERNATIONAL NORM RATIO 3.6 (2.0-3.5)
== END 2018-03-22 15:40 | disposition home or self-care (01) ==
LOC: ED 14:24
PROVIDERS: Physician Assistant
DX: T82.838A Hemorrhage due to vascular prosthetic devices, implants and grafts, initial encounter (principal); Z99.2 Dependence on renal dialysis; Z79.01 Long term (current) use of anticoagulants; Z79.899 Other long term (current) drug therapy; Z98.890 Other specified postprocedural states; Z90.49 Acquired absence of other specified parts of digestive tract; Z94.4 Liver transplant status; Z87.891 Personal history of nicotine dependence

== ENCOUNTER 2018-05-24 09:14 | Emergency (ER) | payer MEDICARE, OTHER ==
[~2018-05-24] VITALS: Ht 167.6 cm; Wt 56.7 kg
[~2018-05-24 09:14] MED LIST changes: +TERAZOSIN HCL1 M1 PO; -TERAZOSIN1 MG PO
[2018-05-24 09:43] LABS: BASO % 0.3 % (0.0-1.0); EOS # 0.1 10*3/uL (0.0-0.4); EOS % 1.3 % (1.0-4.0); HEMATOCRIT 37.4 % (42.0-52.0); HEMOGLOBIN 11.3 g/dl (14.0-18.0); LYMPH # 0.8 10*3/uL (1.3-4.4); LYMPH % 13.1 % (27.0-41.0); MEAN CELL VOLUME 99.2 fl (80.0-94.0); MEAN CORPUSCULAR HGB CONC 30.2 g/dl (33.0-37.0); MEAN PLATELET VOLUME 9.7 fl (9.6-12.3); MONO # 0.7 10*3/uL (0.1-1.0); MONO % 10.4 % (3.0-9.0); NEUT # 4.7 10*3/uL (2.3-7.9); NEUT % 74.6 % (47.0-73.0); PLATELET COUNT AUTOMATED 165 10*3/uL (130-400); RED BLOOD COUNT 3.77 10*6/uL (4.50-5.90); RED CELL DISTRI WIDTH 15.2 % (0-14.5); WHITE BLOOD COUNT 6.2 10*3/uL (4.8-10.8)
[2018-05-24 09:58] LABS: CREATININE 2.26 mg/dL (0.70-1.30); POTASSIUM 3.6 mmol/L (3.5-5.1); TOTAL PROTEIN 7.8 gm/dL (6.4-8.2)
[2018-05-24 10:03] LABS: INTERNATIONAL NORM RATIO 7.8 (2.0-3.5)
[2018-06-21] MEDS ORDERED: LASIX20 MG PO (12:13)
[2018-06-21] MEDS ORDERED: LIDOCAINE-PRIL1 EACH T (12:18)
[2018-06-24] MEDS ORDERED: COUMADIN5 M2 PO (10:21)
== END 2018-05-24 11:41 | disposition short-term general hospital (02) ==
LOC: ED 09:14
PROVIDERS: Nurse Practitioner Family
DX: T82.838A Hemorrhage due to vascular prosthetic devices, implants and grafts, initial encounter (principal); R79.1 Abnormal coagulation profile; Z79.899 Other long term (current) drug therapy; Z87.891 Personal history of nicotine dependence; Z99.2 Dependence on renal dialysis; Z79.01 Long term (current) use of anticoagulants; Y92.89 Other specified places as the place of occurrence of the external cause

== ENCOUNTER 2018-08-28 02:45 | Inpatient (IN) | payer MEDICARE, OTHER ==
[~2018-08-28] VITALS: Ht 167.6 cm; Wt 47.6 kg
[2018-08-28] VITALS (8 sets, daily range): BP systolic 110–163; BP diastolic 64–88
--- NOTE | ~2018-08-28 | CON ---
[place], [place] REPORT OF CONSULTATION NAME: SCOTT OTTO [facility] #: [id number] UNIT #: [id number] ROOM: 424 DOCTOR: ESTUARDO CARVALHO MD BIRTHDATE: [birth year] DOS: 08/29/2018 PULMONARY CONSULTATION, EVALUATION AND MANAGEMENT CONSULTATION REQUESTED BY: Kristin, nurse practitioner. REASON FOR CONSULTATION: To assess the patient for current pleural effusions. HISTORY OF PRESENT ILLNESS: This is an 88-year-old elderly male patient, who has been admitted to the hospital on 08/28/2018. The patient presented to the hospital with the symptoms of having increased shortness of breath occurring from home for the last few days. The symptoms had been noted with gradual progression. He has been noted with symptoms of some nonproductive cough as well. The patient denies symptoms of chest pain with that. There were no symptoms of hemoptysis. General weakness and fatigue was also reported. The patient has a recent dental extraction that was done in preparation for the TAVR procedure at [facility]. He has been admitted to the hospital for further care. He has been reported with pleural fluid on the chest x-ray and CT scans. The patient presented to the emergency, given IV Lasix. The patient resides at the nursing facility. He has been noted with oxygen desaturation with the supplementation of oxygen the oxygen saturation was noted in the low 80s in the Emergency Room as well. He had been also known with history of end-stage renal failure, receiving hemodialysis Tuesday, Tuesday and Tuesday as well. REVIEW OF SYSTEMS: CONSTITUTIONAL: Fatigue and tiredness reported. No symptoms of fever or chills. EYES: Denies any burning, redness, or tenderness. EARS, NOSE, THROAT SYMPTOMS: Denies sore throat, hoarseness, otalgia, postnasal drainage or epistaxis. CARDIOVASCULAR: The patient was complaining of some edema of the lower extremity. Denies symptoms of anginal pain. The patient does have some symptoms of orthopnea. GASTROINTESTINAL: No dysphagia, nausea, vomiting, diarrhea, abdominal pain, hematemesis, melena, or hematochezia. MUSCULOSKELETAL: No acute joint pain, redness, or tenderness. SKIN: No lesions or rashes. CENTRAL NERVOUS SYSTEM: No dizziness, headache, diplopia, and syncopal episode. Remaining systems were reviewed. They were noted all negative. PAST MEDICAL HISTORY: Known with history of: 1. Liver transplant with immunosuppressive therapy. 2. The patient with end-stage renal failure, hemodialysis 3 times a week. 3. Recurrent left pleural fluid requiring VATS procedure chemical pleurodesis in 2016. 4. History of congestive heart failure with diastolic dysfunction. 5. History of deep venous thrombosis. [place], [place] REPORT OF CONSULTATION [id number] #: [id number] ROOM: [facility] DOCTOR: LOAN CARVALHO MDULAM BIRTHDATE: [birth year] 6. Paroxysmal atrial fibrillation. PAST SURGICAL HISTORY: 1. Fistula creation of the arm, hemodialysis. 2. T and A. 3. Appendectomy. 4. Tonsillectomy. 5. Liver transplant in 2003. 6. Cataract extraction with lens implantation. 7. The patient with VATS procedure, chest tube insertion and pleurodesis for the left recurrent nonmalignant pleural effusions. SOCIAL HISTORY: The patient has smoked cigarettes many years ago, stated that he has not smoked cigarettes after 1959. Denies history of alcohol use or any illicit drugs. The patient stated that he is . FAMILY HISTORY: The patient reported father and the mother is also . FAMILY HISTORY: Reported for diabetes mellitus, epilepsy, coronary artery disease, and brain tumor. MEDICATIONS: On admission for the nursing facility were noted as Coumadin, terazosin, Protonix, CellCept, magnesium oxide, lisinopril, DuoNeb, Lasix 60 mg p.o. b.i.d., cyclosporine, Coreg, vitamin B complex, vitamin C, amitriptyline, and acetaminophen with codeine. Current medications administered were Protonix, amitriptyline, Coreg, terazosin, Coumadin, magnesium oxide, Lasix 40 mg IV b.i.d., mycophenolate mofetil, lisinopril, DuoNeb, codeine sulfate some other p.r.n. medications. ALLERGIES: No known drug allergies. PHYSICAL EXAMINATION: GENERAL: This is an 88-year-old elderly male patient currently sitting on his bed without acute distress this morning of assessment. VITAL SIGNS: Height of 5 feet 6 inches, weight 112 pounds, BMI 18. Vital signs, normal temperature since admission, respiratory rate 18-20, heart rate 77-75, blood pressure 120/61-140/60. Pulse oxygen saturation recorded as 95% saturation on 4 liter nasal cannula. HEENT: Head was atraumatic. Eyes: No icterus. NECK: Supple. CARDIOVASCULAR: S1, S2 is audible. LUNGS: The patient was noted without any wheezing. Crackles was noted with decreased breath sounds in the lungs bilaterally. ABDOMEN: Soft, nontender. Bowel sounds present. EXTREMITIES: The patient noted with edema. MUSCULOSKELETAL: The patient was noted without any acute deformities. CENTRAL NERVOUS SYSTEM: Cranial nerves 2-12 intact. [place], [place] REPORT OF CONSULTATION NAME: SCOTT OTTO UNIT #: [id number] ROOM: 424 DOCTOR: EZEKIEL LIVE MD,ESTUARDO BIRTHDATE: [birth year] LABORATORY DATA: Reviewed. CBC that was done on 08/28/2018, WBC count normal, hemoglobin 9.6, platelet count normal. PT/PTT on 08/28/2018. PT/INR 2.0, which is therapeutic, PTT normal. Lactic acid yesterday normal. CMP on admission, BUN 29, creatinine 4.66. Remaining LFTs grossly normal. Troponin 3 sets was also noted as normal yesterday. CMP this morning, BUN 20, creatinine of 3.34. CBC this morning, WBC count normal, hemoglobin 9.3, MCV 103, hematocrit 32.4, and platelet count 209,000 that was normal. PT/INR this morning 2.3, which is therapeutic. PTT mildly elevated at 36. The chest x-ray that was done on 08/28/2018 appears like pulmonary infiltration with possible consideration of pulmonary fibrosis loculated pleural effusion. The left upper chest with a small right pleural fluid was also considered. The chest x-ray was compared to the 06/21/2018, chest x-ray shows similar changes, fibrosis, but the fluid was noted less loculated in the left upper chest. Three CT scans of the chest were reviewed. The initial CT scan of the chest was reviewed, which were done currently, which shows evidence of a loculated pleural fluid on the left chest with a small circumferential loculated pleural fluid on the right side as well. Area of scarring would be considered in the lungs with chronic interstitial changes, traction bronchiectasis was noted as well in the lungs. Current finding is certainly not suggestive of evidence of usual interstitial pneumonitis. The CT scan of the chest that was done on ____ shows evidence of fibrotic changes that was noted at that time with the thickening of major fissure as well as infiltration, which was present in the lingula. IMPRESSION: The patient has been currently admitted to the hospital with history of end-stage renal failure had developed chronic progressive interstitial pulmonary fibrosis ____ radiologic findings were not consistent with a UIP. Diffuse alveolar lung damage or other finding of chronic hypersensitive pneumonitis remains in differential diagnosis. Certainly fluid overload, congestive heart failure also pronounce the current findings. Chronic left pleural fluid. The patient managed with a VATS procedure a few years ago, the patient with loculated pleural fluid noted, not of any concern. The right pleural fluid also noted, circumferential bronchial lactulose. At this time, the significance of that remains unknown. The differential would be considered interstitial lung disease causing current finding of congestive heart failure and others. Certainly, the findings were not suggestive of acute active infection, but cannot be completely excluded lack of the fever. Other findings, infection does suggest evidence against any active infection. End-stage renal failure on hemodialysis. PLAN OF THERAPY: At this time, the patient will be recommended only conservative treatment at this age, would not be doing any laboratory workup for the interstitial pulmonary fibrosis and other. Continue diuretics as ordered. Hemolysis with maximal fluid removal. Continue anticoagulation. Oxygen supplementation to maintain pulse ox 92% or greater. Supportive therapy, plan of management, current plan, supportive respiratory status, if necessary with use of the BiPAP in case of worsening of the hypoxemia. Other therapy, plan and management, and additional treatment changes will be recommended based on progression of the illness. Tapping at this time would not be necessary because of small to moderate circumferential fluid. Any invasive procedure necessary, would be considered as a VATS procedure for the patient and decortication, which [place], [place] REPORT OF CONSULTATION [facility]: [id number] UNIT #: [id number] ROOM: 424 DOCTOR: ESTUARDO CARVALHO MD BIRTHDATE: [birth year] will have quite a bit morbidity and mortality. Supportive care therapy, plan of management, and care plan with the addition of changes in treatment will be done based on progression of his illness. Thanks for allowing me to participate in the care of this patient. ESTUARDO FALCON MD CM:CONSTR:REPORT OF CONSULTATION 1519 08/30/18 0518 interface
--- NOTE | ~2018-08-28 | PR ---
[place], [place] PROGRESS NOTE NAME: SCOTT OTTO [facility] #: [id number] UNIT #: [id number] ROOM: 424 DOCTOR: EZEKIEL LIVE MD,ESTUARDO BIRTHDATE: [birth year] DOS: 08/31/2018 PULMONARY PROGRESS NOTE SUBJECTIVE: The patient was seen and examined on 08/31/2018. He has been doing much better. He has hemodialysis done. Reduction in shortness breath is noted. The patient has been able to remove about 3 liters of water. He has not been noted symptoms of chest pain. The cough has been noted minimal. There were no symptoms of chest pain, fever or chills. OBJECTIVE: VITAL SIGNS: Which have been recorded showed normal temperature, respiratory rate of 17, heart rate 68, blood pressure 114/49. The pulse oxygen saturation was recorded as 99% saturation on 4 liters nasal cannula. HEENT: Head was atraumatic, eyes nonicterus. NECK: Supple. CARDIOVASCULAR: S1 and S2 audible. LUNGS: Scattered expiratory crackles with decreased breaths in the lower portion of the lungs. ABDOMEN: Soft, nontender. Bowel sounds present. EXTREMITIES: The patient is noted without any acute edema. IMPRESSION: 1. Stable respiratory status with gradual resolution and improvement noted of fluid overload and congestive heart failure. 2. History of end-stage renal failure. 3. Chronic pleural fluid on the left side with partial loculation. PLAN OF MANAGEMENT: The patient can be considered discharge from pulmonary standpoint at this time. No other change in treatment would be needed. Continue other supportive plan of management, care plan, and therapies. ESTUARDO FALCON MD CM:PNTRANS [phone] ESTUARDO LIVE MD 09/02/18 0142 interface
--- NOTE | ~2018-08-28 | EKG ---
[place], [place] ELECTROCARDIOGRAM REPORT NAME: SCOTT OTTO UNIT #: [id number] ROOM: 424 DOCTOR: MEG DRAFT REPORT BIRTHDATE: [birth year] [facility] Test Date: 2018-08-28 Test Time: 03:05:41 Pat Name: SCOTT OTTO Department: Room: [facility] Gender: M Communication Arts Lecturer: Charla Tillman : 1930 Requested By: MIC HAMPTON Order Number: [id number] Reading MD: Khushbu Pedroza MD Measurements Intervals [place] Rate: 81 P: [place]: QRS: 58 QRSD: 100 T: 20 QT: 436 QTc: 506 Interpretive Statements Atrial fibrillation Prolonged QT interval Baseline wander in lead(s) V4 Compared to ECG 06/21/2018 10:19:30 Early repolarization no longer present Electronically Signed On 08-29-2018 7:55:41 PDT by Khushbu Pedroza MD CM:EKGRPT:ELECTROCARDIOGRAM REPORT [id number] MIC SOLARES DRAFT REPORT MIC HAMPTON DO
--- NOTE | ~2018-08-28 | EKG ---
[place], [place] ELECTROCARDIOGRAM REPORT NAME: SCOTT OTTO UNIT #: [id number] ROOM: 424 DOCTOR: MEG DRAFT REPORT BIRTHDATE: [birth year] [facility] Test Date: 2018-08-28 Test Time: 15:09:23 Pat Name: SCOTT OTTO Department: Room: 424 1 Gender: M Management Trainee: SS RESP : 1930 Requested By: ELIZABETH MEYER Order Number: [id number] Reading MD: Khushbu Pedroza MD Measurements Intervals [place] Rate: 75 P: [place]: QRS: 55 QRSD: 104 T: -6 QT: 407 QTc: 455 Interpretive Statements Atrial fibrillation Borderline repolarization abnormality Compared to ECG 06/21/2018 10:19:30 Prolonged QT interval no longer present Electronically Signed On 08-29-2018 7:58:38 PDT by Khushbu Pedroza MD CM:EKGRPT:ELECTROCARDIOGRAM REPORT [id number] ELIZABETH SOLARES DRAFT REPORT ELIZABETH MEYER DO
--- NOTE | ~2018-08-28 | PR ---
[place], [place] PROGRESS NOTE [id number] UNIT #: [id number] ROOM: 424 DOCTOR: EZEKIEL LIVE MD,ESTUARDO BIRTHDATE: [birth year] DOS: 08/30/2018 PULMONARY PROGRESS NOTE SUBJECTIVE: The patient is receiving hemodialysis this morning. He has been noted comfortable at this time, using oxygen supplementation. Denies symptoms of fever or chills, coughing or any sputum expectoration. OBJECTIVE: VITAL SIGNS: For the patient, which has been recorded shows the temperature was noted as normal. The respiratory rate recorded 18, heart rate 77, blood pressure 138/68. The pulse oxygen saturation recorded as 97% saturation on 2 liters nasal cannula. HEENT: Examination shows head was atraumatic. Eyes nonicterus. CARDIOVASCULAR SYSTEM: S1, S2 audible. LUNGS: The patient was noted without any wheezing. Inspiratory crackles, which are noted chronic with decreased breath sounds in the lower portion of the lung on the right side. ABDOMEN: Soft, nontender. Bowel sounds present. EXTREMITIES: Without any acute change. IMPRESSION: 1. The patient with fluid overload with congestive heart failure with chronic interstitial lung disease with superimposed congestive heart failure. 2. The patient has still renal failure, on hemodialysis. 3. History of chronic immunosuppression, lung transplant. 4. Therapeutic INR, on chronic anticoagulation for atrial fibrillation. PLAN OF MANAGEMENT: Continue maximizing free water removal with the dialysis. Titrate oxygen supplementation, maintain pulse ox 92% or greater with the additional changes in the treatment will be recommended based on the progression of the illness. ESTUARDO FALCON MD CM:PNTRANS [id number] ESTUARDO LIVE MD 08/31/18 0011 interface
--- NOTE | ~2018-08-28 | EKG ---
[place], [place] ELECTROCARDIOGRAM REPORT NAME: SCOTT OTTO UNIT #: [id number] ROOM: 424 DOCTOR: MEG DRAFT REPORT BIRTHDATE: [birth year] [facility] Test Date: 2018-08-28 Test Time: 07:44:40 Pat Name: SCOTT OTTO Department: Room: 424 1 Gender: M Wallboard Worker: Mary Blancas : 1930 Requested By: ELIZABETH MEYER Order Number: [id number] Reading MD: Khushbu Pedroza MD Measurements Intervals [place] Rate: 77 P: [place]: QRS: 72 QRSD: 95 T: 87 QT: 411 QTc: 466 Interpretive Statements Atrial fibrillation Borderline repolarization abnormality Baseline wander in lead(s) V3 Compared to ECG 06/21/2018 10:19:30 Prolonged QT interval no longer present Electronically Signed On 08-29-2018 7:56:39 PDT by Khushbu Pedroza MD CM:EKGRPT:ELECTROCARDIOGRAM REPORT [id number] ELIZABETH SOLARES DRAFT REPORT ELIZABETH EMYER DO
[~2018-08-28 02:45] MED LIST changes: +LASIX20 MG PO; +LIDOCAINE-PRIL1 EACH T; -LISINOPRIL20 MG PO
[2018-08-28 03:21] LABS: BASO % 0.4 % (0.0-1.0); EOS # 0.1 10*3/uL (0.0-0.4); EOS % 0.8 % (1.0-4.0); HEMATOCRIT 33.4 % (42.0-52.0); HEMOGLOBIN 9.6 g/dl (14.0-18.0); LYMPH # 1.3 10*3/uL (1.3-4.4); LYMPH % 18.2 % (27.0-41.0); MEAN CELL VOLUME 104.4 fl (80.0-94.0); MEAN CORPUSCULAR HGB CONC 28.7 g/dl (33.0-37.0); MEAN PLATELET VOLUME 9.2 fl (9.6-12.3); MONO # 0.5 10*3/uL (0.1-1.0); MONO % 7.2 % (3.0-9.0); NEUT # 5.2 10*3/uL (2.3-7.9); NUCLEATED RED BLOOD CELL 0.3 % (0.0-0.0); PLATELET COUNT AUTOMATED 232 10*3/uL (130-400); RED CELL DISTRI WIDTH 18.4 % (0-14.5); WHITE BLOOD COUNT 7.2 10*3/uL (4.8-10.8)
[2018-08-28 03:30] LABS: ACT PARTIAL THROMBO TIME 35.5 SECONDS (20.8-31.5)
[2018-08-28 03:38] LABS: ALBUMIN 2.7 gm/dl (3.1-4.5); CREATININE 4.66 mg/dL (0.70-1.30); POTASSIUM 5.1 mmol/L (3.5-5.1); TOTAL PROTEIN 7.5 gm/dL (6.4-8.2); TROPONIN I 0.016 ng/ml (<0.045)
--- NOTE | 2018-08-28 05:56 | NUR ---
A 88, admitted to , under the services of CRYSTAL Reese DO with a diagnosis of CHF. Chief complaint is SHORTNESS OF BREATH. Patient arrived via stretcher from ER. Monitor applied. Initial assessment completed. Vital signs taken and recorded. CRYSTAL REESE DO notified of admission to the unit. Orders received. See assessment for past medical history, medications and allergies. Patient and/or family oriented to unit. [facility] visitation policy reviewed. Clothing/patient valuable form completed. NEAL LARSON
[2018-08-28] MEDS ORDERED: Ipratropium Brom3 ML INH (06:16)
[2018-08-28] MEDS ORDERED: AMITRIPTYLINE10 MG PO (06:17)
[2018-08-28] MEDS ORDERED: NEPHROCAPS SOFTG1 MG PO (06:20)
[2018-08-28] MEDS ORDERED: TYLENOL WITH C1 EACH PO (06:22)
[2018-08-28] MEDS ORDERED: VITAMIN C500 M8 PO (06:23)
--- NOTE | 2018-08-28 06:24 | NUR ---
NOTIFIED OF PATIENT'S ARRIVAL ON FLOOR & NEEDING ADMISSION ORDERS. STATES HE WILL PUT IN ORDERS ONCE HE IS AT THE HOSPITAL. NEW ORDER RECEIVED FOR PHYSICIAN'S CONSULT TO FOR HEMODIALYSIS (M/W/F).
--- NOTE | 2018-08-28 06:46 | NUR ---
'S ANSWERING SERVICE CALLED REGARDING CONSULT. INFORMATION LEFT WITH MANAGER FREELANCE.
--- NOTE | 2018-08-28 09:10 | NUR ---
PT SENT TO DIALYSIS VIA BED
--- NOTE | 2018-08-28 09:42 | NUR ---
patient comes from [facility]. patient is ok to return when medically stable for discharge.
--- NOTE | 2018-08-28 10:34 | NUR ---
PHYSICAL THERAPY PAtient at dialysis. Alix Marroquin,PT
--- NOTE | 2018-08-28 13:30 | NUR ---
PT RETURN FROM DIALYSIS, DRESSING OVER FISTULA PER TRAIN BRAKE OPERATOR, TIPSTOP ON IT AND SHOULD REMOVE IN 2-3 HOURS
--- NOTE | 2018-08-28 15:17 | NUR ---
DR. FALCON NOTIFIED OF NEW CONSULT
--- NOTE | 2018-08-28 15:58 | NUR ---
PHYSICAL THERAPY Patient respectfully declines Pt this afternoon. Difficulties with diaylsis this am. Thank you for this referral. Alix Marroquin,PT
--- NOTE | 2018-08-28 17:00 | NUR ---
DRESSING PLACED BY DILYSIS ON FISTULA MOISTENED AND TAKEN OFF, NO BLEEDING NOTED. SMALL DRY GAUZE PLACED OVER SITE
[2018-08-29] VITALS: BP 128/61
[2018-08-29 06:14] LABS: ALBUMIN 2.5 gm/dl (3.1-4.5); CREATININE 3.34 mg/dL (0.70-1.30); PHOSPHOROUS 2.5 mg/dL (2.5-4.9); POTASSIUM 4.3 mmol/L (3.5-5.1); TOTAL PROTEIN 6.9 gm/dL (6.4-8.2)
[2018-08-29 06:37] LABS: BASO % 0.5 % (0.0-1.0); EOS # 0.1 10*3/uL (0.0-0.4); HEMATOCRIT 32.4 % (42.0-52.0); HEMOGLOBIN 9.3 g/dl (14.0-18.0); LYMPH # 1.4 10*3/uL (1.3-4.4); LYMPH % 22.3 % (27.0-41.0); MEAN CELL VOLUME 103.2 fl (80.0-94.0); MEAN CORPUSCULAR HGB 29.6 pg (27.0-31.0); MEAN CORPUSCULAR HGB CONC 28.7 g/dl (33.0-37.0); MEAN PLATELET VOLUME 9.4 fl (9.6-12.3); MONO # 0.5 10*3/uL (0.1-1.0); MONO % 8.4 % (3.0-9.0); NEUT # 4.3 10*3/uL (2.3-7.9); NEUT % 67.5 % (47.0-73.0); PLATELET COUNT AUTOMATED 209 10*3/uL (130-400); RED BLOOD COUNT 3.14 10*6/uL (4.50-5.90); RED CELL DISTRI WIDTH 18.6 % (0-14.5); WHITE BLOOD COUNT 6.3 10*3/uL (4.8-10.8)
[2018-08-29 06:52] LABS: ACT PARTIAL THROMBO TIME 36.5 SECONDS (20.8-31.5); INTERNATIONAL NORM RATIO 2.3 (2.0-3.5)
[2018-08-29 08:20] VITALS: BP 140/60
--- NOTE | 2018-08-29 09:00 | NUR ---
case management visits with patient, patient lives at home with son, but has been at [facility] for short term care home, patient has dialysis Tuesday, Tuesday and Tuesday, patient states he will be going back to [place] for short term care home when medically stable
[2018-08-29 12:00] VITALS: BP 148/70
--- NOTE | 2018-08-29 13:30 | NUR ---
PHYSICAL THERAPY Patient evaluated on 4, full evaluation to follow. Continue with PT as per plan of care with fall, 02 and acute debility precautions. Will require SNF. PAtient is moderate complexity via chart review, tests and evaluation: 66069. Thank you for this referral. Alix Marroquin,PT
--- NOTE | 2018-08-29 14:06 | NUR ---
Occupational Therapy evaluation completed on 4 with full eval to follow. Precautions include fall risk, acute debility, O2 use, ESRD with dialysis and LUE shunt, no BP LUE, moderate complexity level 53537 via chart review, testing and evaluation. Recommend OT per POC and SNF upon d/c to enable return home with son. Thank you for this referral. Jacque Us OTR/l
[2018-08-29 16:00] VITALS: BP 147/66
--- NOTE | 2018-08-29 16:06 | NUR ---
BLADDER SCAN DONE PER DR. MARTINES REQUEST. PT HAS NOT URINATED ALL DAY. BLADDER SCAN FOR 120CC.
[2018-08-29 20:00] VITALS: BP 132/65
[2018-08-30] VITALS: BP 138/68
[2018-08-30 06:29] LABS: INTERNATIONAL NORM RATIO 3.1 (2.0-3.5)
[2018-08-30 06:56] LABS: POTASSIUM 4.6 mmol/L (3.5-5.1)
[2018-08-30 07:01] LABS: ALBUMIN 2.8 gm/dl (3.1-4.5); CREATININE 4.28 mg/dL (0.70-1.30); PHOSPHOROUS 2.8 mg/dL (2.5-4.9)
--- NOTE | 2018-08-30 11:02 | NUR ---
OT NOTE Attempted to see pt this A.M. for OT session and upon arrival pt was out of the room for dialysis. Will check back at a later time/date. DYLAN Green/Kristina
[2018-08-30 12:00] VITALS: BP 133/71
--- NOTE | 2018-08-30 12:48 | NUR ---
Patient updated clinicals faxed to [facility] for review. Patient is short term skilled, ok to return when medically stable for discharge.
--- NOTE | 2018-08-30 14:27 | NUR ---
PHYSICAL THERAPY informed consent given pt identified by name and . pt presented supine in bed with 4L 02 on. supine to sit SBA. STS Renetta, v/c for safe hand placement to avoid injury. Static standing balance 1min B UE supported by AD, SBA pt able to correct self with LOB. seated ther ex B LE manual resistance x10 all planes. sit to supine SBA. Ended treatment pt supine in bed, call light and belongings in reach, bed alarm on. 1:1 treatment with PASTRY ARTIST 8min. KATIE PA PASTRY ARTIST
[2018-08-30 16:00] VITALS: BP 111/57
[2018-08-30 20:00] VITALS: BP 112/67
--- NOTE | 2018-08-30 20:00 | NUR ---
PATIENT RESTING IN BED. PATIENT REQUESTED ENSURE FOR HE IS WORRIED THAT HE HIS LOSING WEIGHT. DR. HARRIS STATED THAT THE PATIENT COULD BE STARTED ON IT TOMORROW.
[2018-08-31] VITALS: BP 114/49
[2018-08-31 07:01] LABS: INTERNATIONAL NORM RATIO 2.6 (2.0-3.5)
[2018-08-31] MEDS ORDERED: COUMADIN4 M2 PO (10:30)
--- NOTE | 2018-08-31 11:03 | NUR ---
Patient discharged to the [facility], transportation scheduled with [facility] at 11:30 am. NH, nursing and [employer] all notified.
--- NOTE | 2018-08-31 11:29 | NUR ---
PHYSICAL THERAPY CO-SIGN I approve of the Phyical Therapy notes written above. DIDIER MENJIVAR PT
--- NOTE | 2018-08-31 11:50 | NUR ---
PATIENT DISCHARGED BY AMBULANCE TO [facility]. HEPLOCK DISCONTINUED AND AIR BRAKE TESTER REMOVED. REPORT CALLED TO [facility].
--- NOTE | 2018-08-31 16:00 | NUR ---
OCCUPATIONAL THERAPY CO-SIGN I approve of the Occupational Therapy notes written above. JIMBO GREENBERG OTR/Kristina
[2018-11-16] MEDS ORDERED: LISINOPRIL20 MG PO (13:55)
[2018-11-23] MEDS ORDERED: Zestril,Prinivi40 MG PO (10:58)
[2018-11-23] MEDS ORDERED: DOXYCYCLINE100 M3 PO (10:59)
== END 2018-08-31 11:50 | disposition other institution (70) | DRG 291 ==
LOC: ED 02:45 → 4E 05:06 → EDHOLD 05:06 → 4E 05:40
PROVIDERS: Family Medicine; Registered Nurse; Student in an Organized Health Care Education/Training Program; ADMIT Internal Medicine
PROC: 5A1D70Z Performance of Urinary Filtration, Intermittent, Less than 6 Hours Per Day (ICD-10-PCS; principal; 2018-08-28)
PROC: 5A1D70Z Performance of Urinary Filtration, Intermittent, Less than 6 Hours Per Day (ICD-10-PCS; 2018-08-30)
DX: I13.2 Hypertensive heart and chronic kidney disease with heart failure and with stage 5 chronic kidney disease, or end stage renal disease (principal); I50.33 Acute on chronic diastolic (congestive) heart failure; N18.6 End stage renal disease; E43 Unspecified severe protein-calorie malnutrition; D68.59 Other primary thrombophilia; Z94.4 Liver transplant status; Z68.1 Body mass index [BMI] 19.9 or less, adult; K21.9 Gastro-esophageal reflux disease without esophagitis; D63.8 Anemia in other chronic diseases classified elsewhere; F32.9 Major depressive disorder, single episode, unspecified; K74.60 Unspecified cirrhosis of liver; R53.81 Other malaise; R53.83 Other fatigue; I48.0 Paroxysmal atrial fibrillation; J84.10 Pulmonary fibrosis, unspecified; D89.9 Disorder involving the immune mechanism, unspecified; Z96.1 Presence of intraocular lens; N40.0 Benign prostatic hyperplasia without lower urinary tract symptoms; I34.1 Nonrheumatic mitral (valve) prolapse; I35.0 Nonrheumatic aortic (valve) stenosis; Z86.718 Personal history of other venous thrombosis and embolism; Z90.49 Acquired absence of other specified parts of digestive tract; Z98.49 Cataract extraction status, unspecified eye; Z83.3 Family history of diabetes mellitus; Z99.2 Dependence on renal dialysis; Z87.891 Personal history of nicotine dependence; Z82.49 Family history of ischemic heart disease and other diseases of the circulatory system; Z80.8 Family history of malignant neoplasm of other organs or systems; Z82.0 Family history of epilepsy and other diseases of the nervous system; Z79.899 Other long term (current) drug therapy; Z79.01 Long term (current) use of anticoagulants

== ENCOUNTER 2018-10-08 17:33 | Inpatient (IN) | payer MEDICARE, OTHER ==
[~2018-10-08] VITALS: Ht 167.6 cm; Wt 48.8 kg
[~2018-10-08 17:33] MED LIST changes: +AMITRIPTYLINE10 MG PO; +COUMADIN4 M2 PO; +Ipratropium Brom3 ML INH; +NEPHROCAPS SOFTG1 MG PO; +TYLENOL WITH C1 EACH PO; +VITAMIN C500 M8 PO
[2018-10-08 17:36] VITALS: BP 199/76
--- NOTE | 2018-10-08 17:53 | NUR ---
AFTER SEVERAL QUICK CLOT APPLICATIONS AND PRESSURE TO WOUND APPLIED BLEEDING APPEARS TO BE CONTROLLED.
[2018-10-08 17:54] VITALS: BP 153/79
[2018-10-08 17:59] LABS: BASO % 0.4 % (0.0-1.0); EOS # 0.1 10*3/uL (0.0-0.4); HEMOGLOBIN 10.2 g/dl (14.0-18.0); LYMPH # 1.7 10*3/uL (1.3-4.4); LYMPH % 25.6 % (27.0-41.0); MEAN CELL VOLUME 100.6 fl (80.0-94.0); MEAN CORPUSCULAR HGB 30.2 pg (27.0-31.0); MEAN PLATELET VOLUME 10.8 fl (9.6-12.3); MONO # 0.8 10*3/uL (0.1-1.0); MONO % 11.2 % (3.0-9.0); NEUT # 4.2 10*3/uL (2.3-7.9); NEUT % 61.4 % (47.0-73.0); PLATELET COUNT AUTOMATED 357 10*3/uL (130-400); RED BLOOD COUNT 3.38 10*6/uL (4.50-5.90); RED CELL DISTRI WIDTH 18.1 % (0-14.5); WHITE BLOOD COUNT 6.8 10*3/uL (4.8-10.8)
--- NOTE | 2018-10-08 18:03 | NUR ---
PRT CALLED ME INTO ROOM STATING HE COULD NOT OPEN HAND, SOME PRESSURE RELEASED FROM BP TOURNIQUETTE, RADIAL PULSE STRONG. NO ACTIVE BLEEDING NOTED.
[2018-10-08 18:09] LABS: ACT PARTIAL THROMBO TIME 37.3 SECONDS (20.0-32.1); INTERNATIONAL NORM RATIO 2.6 (2.0-3.5)
--- NOTE | 2018-10-08 18:10 | NUR ---
MULTIPLE THROMBIN DRESSINGS HAVE BEEN APPLIED AND DISCARDED AND MULTIPLE SHORT PERIODS OF FULL STRENGTH AND PARTIAL TOURNIQUET APPLICATION HAVE BEEN PERFORMED. NOW, ALL TOURNIQUET APPLICATION IS REMOVED AND THE CURRENT THROMBIN DRESSING APPLICATION HAS RESOLVED ALL BLEEDING FROM THE SITE.
[2018-10-08 18:18] VITALS: BP 139/55
--- NOTE | 2018-10-08 18:24 | NUR ---
NO BLEEDING NOTED FROM FISTULA. WILL CONTINUE TO MONITOR.
[2018-10-08 18:34] VITALS: BP 134/57
--- NOTE | 2018-10-08 18:38 | NUR ---
NO BLEEDING NOTED FROM FISTULA.
[2018-10-08 19:00] VITALS: BP 123/52
--- NOTE | 2018-10-08 19:01 | NUR ---
NO BLEEDING FROM FISTULA.
[2018-10-08 19:28] LABS: ALBUMIN 2.8 gm/dl (3.1-4.5); CREATININE 4.49 mg/dL (0.70-1.30); POTASSIUM 5.8 mmol/L (3.5-5.1); TOTAL PROTEIN 7.4 gm/dL (6.4-8.2)
--- NOTE | 2018-10-08 19:58 | NUR ---
A 88, admitted to 4E, under the services of CRYSTAL Reese DO with a diagnosis of SURGICAL AV FISTULA HEMORRHAGE. Chief complaint is SPONTANEOUS BLEEDING FROM AV FISTULA. Patient arrived via STRETCHER from ER. Monitor applied. Initial assessment completed. Vital signs taken and recorded. CRYSTAL REESE DO notified of admission to the unit. Orders received. See assessment for past medical history, medications and allergies. Patient and/or family oriented to unit. [facility] visitation policy reviewed. Clothing/patient valuable form completed. FRANDY GUNDERSON
[2018-10-08 20:00] VITALS: BP 146/57
--- NOTE | 2018-10-08 20:00 | NUR ---
SON HAS ALL PT BLOOD SOAKED CLOTHING AND SLIPPERS AND IS TAKING THEM HOME. PT STOOD FOR TRANSFER FROM ER BED TO 420 BED. TOLERATED WELL.
[2018-10-08] MEDS ORDERED: WARFARIN SOD5 MG PO (20:29)
--- NOTE | 2018-10-08 20:57 | NUR ---
NOTIFIED OF MED REC UP TO DATE PER PATIENT/PATIENT'S SON/SKILLED NURSING PAPERWORK FROM [facility]. PT WAS DISCHARGED FROM [facility] Tuesday10/07/18 PER SON. DISCUSSED ANTI-REJECTION MEDICATIONS PT HAD NOT TAKEN TONIGHT. INSTRUCTED TO ORDER THEM PER . ALSO DISCUSSED AREA TO AV FISTULA THAT HAS SCAB-LIKE APPEARANCE. PT REQUESTING TO PUT A LARGE BANDAID OVER SITE SO THAT IT WON'T COME OFF IN HIS SLEEP & START BLEEDING AGAIN. PER , OKAY TO PUT ADAPTIC AND OPTIFOAM ON SITE FOR TONIGHT.
--- NOTE | 2018-10-08 22:12 | NUR ---
OPTIFOAM & ADAPTIC APPLIED TO L ARM FISTULA PER 'S ORDERS. NO S/S OF BLEEDING NOTED. WILL MONITOR. CALL LIGHT LEFT IN REACH. BED ALARM INTACT.
[2018-10-09] VITALS: BP 136/57
--- NOTE | 2018-10-09 01:08 | NUR ---
PT ASLEEP IN BED, EASILY AROUSABLE. WARM BLANKETS PROVIDED PER REQUEST. NO S/S OF BLEEDING NOTED FROM FISTULA SITE. DRESSING D/I. WILL MONITOR. CALL LIGHT IN REACH. BED ALARM INTACT.
--- NOTE | 2018-10-09 06:15 | NUR ---
SPOKE TO REGARDING PT'S DIALYSIS M/W/F. INSTRUCTED TO CONSULT BOBBI.
[2018-10-09 06:23] LABS: BASO % 0.5 % (0.0-1.0); EOS # 0.1 10*3/uL (0.0-0.4); EOS % 1.1 % (1.0-4.0); HEMATOCRIT 32.6 % (42.0-52.0); HEMOGLOBIN 9.4 g/dl (14.0-18.0); LYMPH # 1.5 10*3/uL (1.3-4.4); LYMPH % 23.8 % (27.0-41.0); MEAN CELL VOLUME 101.2 fl (80.0-94.0); MEAN CORPUSCULAR HGB 29.2 pg (27.0-31.0); MEAN CORPUSCULAR HGB CONC 28.8 g/dl (33.0-37.0); MEAN PLATELET VOLUME 9.2 fl (9.6-12.3); MONO # 0.6 10*3/uL (0.1-1.0); MONO % 9.9 % (3.0-9.0); NEUT # 4.2 10*3/uL (2.3-7.9); NEUT % 64.5 % (47.0-73.0); PLATELET COUNT AUTOMATED 263 10*3/uL (130-400); RED BLOOD COUNT 3.22 10*6/uL (4.50-5.90); RED CELL DISTRI WIDTH 17.5 % (0-14.5); WHITE BLOOD COUNT 6.5 10*3/uL (4.8-10.8)
[2018-10-09 06:34] LABS: INTERNATIONAL NORM RATIO 2.9 (2.0-3.5)
[2018-10-09 06:38] LABS: CREATININE 4.86 mg/dL (0.70-1.30); POTASSIUM 5.8 mmol/L (3.5-5.1)
--- NOTE | 2018-10-09 06:40 | NUR ---
'S ANSWERING SERVICE CALLED REGARDING CONSULT. INFORMATION LEFT WITH VOCATIONAL REHABILITATION TEACHER ASIF.
[2018-10-09 06:45] LABS: THYROID STIM HORMONE (HS) 0.769 uIU/ml (0.358-4.75)
--- NOTE | 2018-10-09 07:00 | NUR ---
PHYSICAL THERAPY Nursing screen received. Chart review complete. Recommend normal daily mobility with nursing prn. If difficulties with mobilty arise, please order PT when medically appropriate. Thank you. Alix Marroquin,PT
[2018-10-09 07:50] LABS: VITAMIN D, 25-HYDROXY 68.8 ng/mL (30-100)
[2018-10-09 08:00] VITALS: BP 159/52
--- NOTE | 2018-10-09 08:38 | NUR ---
PATIENT TO DIALYSIS BY BED.
--- NOTE | 2018-10-09 08:39 | NUR ---
Patient comes from the [facility]. Patient is ok to return when medically stable for discharge.
--- NOTE | 2018-10-09 08:44 | NUR ---
Nursing screen received. Chart review completed. Encourage daily ADLs with nursing. If difficulties in ADLs, then order Occupational Therapy when medically appropriated. Thank you. Jacque Us OTR/l
[2018-10-09 13:09] VITALS: BP 139/59
[2018-10-09 16:00] VITALS: BP 156/65
[2018-10-09 20:00] VITALS: BP 119/52
[2018-10-10] VITALS: BP 149/50
[2018-10-10 06:42] LABS: BASO % 0.2 % (0.0-1.0); EOS # 0.1 10*3/uL (0.0-0.4); EOS % 0.9 % (1.0-4.0); HEMATOCRIT 30.1 % (42.0-52.0); HEMOGLOBIN 8.7 g/dl (14.0-18.0); LYMPH # 1.8 10*3/uL (1.3-4.4); LYMPH % 26.6 % (27.0-41.0); MEAN CELL VOLUME 100.7 fl (80.0-94.0); MEAN CORPUSCULAR HGB 29.1 pg (27.0-31.0); MEAN CORPUSCULAR HGB CONC 28.9 g/dl (33.0-37.0); MEAN PLATELET VOLUME 9.5 fl (9.6-12.3); MONO # 0.9 10*3/uL (0.1-1.0); MONO % 13.2 % (3.0-9.0); NEUT # 3.9 10*3/uL (2.3-7.9); NEUT % 58.8 % (47.0-73.0); PLATELET COUNT AUTOMATED 249 10*3/uL (130-400); RED BLOOD COUNT 2.99 10*6/uL (4.50-5.90); RED CELL DISTRI WIDTH 17.7 % (0-14.5); WHITE BLOOD COUNT 6.6 10*3/uL (4.8-10.8)
[2018-10-10 06:57] LABS: ALBUMIN 2.6 gm/dl (3.1-4.5); CREATININE 3.27 mg/dL (0.70-1.30); PHOSPHOROUS 2.9 mg/dL (2.5-4.9); POTASSIUM 4.9 mmol/L (3.5-5.1)
[2018-10-10 07:08] LABS: INTERNATIONAL NORM RATIO 2.7 (2.0-3.5)
[2018-10-10 07:31] VITALS: BP 148/52
--- NOTE | 2018-10-10 09:00 | NUR ---
case management visits with patient, patient lives at home with his son, patient was recently discharged from [facility], when he used all of his [facility] days, patient states he goes to dialysis Tuesday, Tuesday and Tuesday, discussed a discharge with patient and he states he will be going home when able, patient states he would like to have [facility] when discharged. patient's information faxed to [facility] and informed them that patient may be discharged to home today, patient denies any other needs at this time
[2018-10-10 12:00] VITALS: BP 125/69
--- NOTE | 2018-10-10 14:35 | NUR ---
Discharge instructions reviewed with patient/family. Patient receptive and verbalizes understanding. Follow-up care arranged. Written instructions given to patient/family. PATIENT TAKEN OUT BY WC. NO S/S OF DISTRESS. DANIELLE BALLARD
[2018-11-16] MEDS ORDERED: LISINOPRIL20 MG PO (13:55)
[2018-11-23] MEDS ORDERED: Zestril,Prinivi40 MG PO (10:58)
[2018-11-23] MEDS ORDERED: DOXYCYCLINE100 M3 PO (10:59)
== END 2018-10-10 14:35 | disposition home or self-care (01) | DRG 314 ==
LOC: ED 17:33 → EDHOLD 19:06 → 4E 19:41
PROVIDERS: Emergency Medicine; Internal Medicine; Registered Nurse; ADMIT Internal Medicine
PROC: 5A1D70Z Performance of Urinary Filtration, Intermittent, Less than 6 Hours Per Day (ICD-10-PCS; principal; 2018-10-08)
DX: T82.838A Hemorrhage due to vascular prosthetic devices, implants and grafts, initial encounter (principal); N18.6 End stage renal disease; E43 Unspecified severe protein-calorie malnutrition; I50.32 Chronic diastolic (congestive) heart failure; D84.9 Immunodeficiency, unspecified; I13.2 Hypertensive heart and chronic kidney disease with heart failure and with stage 5 chronic kidney disease, or end stage renal disease; Z68.1 Body mass index [BMI] 19.9 or less, adult; D63.8 Anemia in other chronic diseases classified elsewhere; I48.0 Paroxysmal atrial fibrillation; J84.10 Pulmonary fibrosis, unspecified; K74.60 Unspecified cirrhosis of liver; Y83.8 Other surgical procedures as the cause of abnormal reaction of the patient, or of later complication, without mention of misadventure at the time of the procedure; N40.0 Benign prostatic hyperplasia without lower urinary tract symptoms; F32.9 Major depressive disorder, single episode, unspecified; K21.9 Gastro-esophageal reflux disease without esophagitis; Z90.49 Acquired absence of other specified parts of digestive tract; Z98.49 Cataract extraction status, unspecified eye; Y92.89 Other specified places as the place of occurrence of the external cause; Z86.718 Personal history of other venous thrombosis and embolism; Z95.2 Presence of prosthetic heart valve; Z79.01 Long term (current) use of anticoagulants; Z51.81 Encounter for therapeutic drug level monitoring; Z83.3 Family history of diabetes mellitus; Z82.0 Family history of epilepsy and other diseases of the nervous system; Z80.8 Family history of malignant neoplasm of other organs or systems; Z82.49 Family history of ischemic heart disease and other diseases of the circulatory system

== ENCOUNTER 2018-10-21 05:55 | Emergency (ER) | payer MEDICARE, OTHER ==
[~2018-10-21] VITALS: Wt 48.6 kg
[~2018-10-21 05:55] MED LIST changes: +WARFARIN SOD5 MG PO
[2018-10-21 06:44] LABS: BASO % 0.3 % (0.0-1.0); EOS # 0.1 10*3/uL (0.0-0.4); EOS % 1.4 % (1.0-4.0); HEMATOCRIT 26.6 % (42.0-52.0); HEMOGLOBIN 7.7 g/dl (14.0-18.0); LYMPH # 1.6 10*3/uL (1.3-4.4); LYMPH % 26.3 % (27.0-41.0); MEAN CELL VOLUME 100.8 fl (80.0-94.0); MEAN CORPUSCULAR HGB 29.2 pg (27.0-31.0); MEAN CORPUSCULAR HGB CONC 28.9 g/dl (33.0-37.0); MEAN PLATELET VOLUME 8.8 fl (9.6-12.3); MONO # 0.8 10*3/uL (0.1-1.0); MONO % 12.7 % (3.0-9.0); NEUT # 3.7 10*3/uL (2.3-7.9); NEUT % 59.1 % (47.0-73.0); PLATELET COUNT AUTOMATED 239 10*3/uL (130-400); RED BLOOD COUNT 2.64 10*6/uL (4.50-5.90); RED CELL DISTRI WIDTH 17.1 % (0-14.5); WHITE BLOOD COUNT 6.2 10*3/uL (4.8-10.8)
[2018-10-21 06:56] LABS: CREATININE 2.85 mg/dL (0.70-1.30); POTASSIUM 3.9 mmol/L (3.5-5.1)
[2018-10-21 06:59] LABS: INTERNATIONAL NORM RATIO 3.4 (2.0-3.5)
[2018-11-16] MEDS ORDERED: LISINOPRIL20 MG PO (13:55)
[2018-11-23] MEDS ORDERED: Zestril,Prinivi40 MG PO (10:58)
[2018-11-23] MEDS ORDERED: DOXYCYCLINE100 M3 PO (10:59)
== END 2018-10-21 08:44 | disposition short-term general hospital (02) ==
LOC: ED 05:55
PROVIDERS: Emergency Medicine
DX: T82.838A Hemorrhage due to vascular prosthetic devices, implants and grafts, initial encounter (principal); K21.9 Gastro-esophageal reflux disease without esophagitis; I48.0 Paroxysmal atrial fibrillation; I13.2 Hypertensive heart and chronic kidney disease with heart failure and with stage 5 chronic kidney disease, or end stage renal disease; N18.6 End stage renal disease; I50.30 Unspecified diastolic (congestive) heart failure; Z99.2 Dependence on renal dialysis; Z86.718 Personal history of other venous thrombosis and embolism; Z79.899 Other long term (current) drug therapy; Z79.01 Long term (current) use of anticoagulants; Z87.891 Personal history of nicotine dependence; Y83.8 Other surgical procedures as the cause of abnormal reaction of the patient, or of later complication, without mention of misadventure at the time of the procedure; Y92.89 Other specified places as the place of occurrence of the external cause

== ENCOUNTER 2018-11-01 16:02 | Emergency (ER) | payer MEDICARE, OTHER ==
[~2018-11-01] VITALS: Wt 50.0 kg
[2018-11-01] MEDS ORDERED: CEPHALEXIN500 M1 PO (22:04)
[2018-11-16] MEDS ORDERED: LISINOPRIL20 MG PO (13:55)
[2018-11-23] MEDS ORDERED: Zestril,Prinivi40 MG PO (10:58)
[2018-11-23] MEDS ORDERED: DOXYCYCLINE100 M3 PO (10:59)
== END 2018-11-01 22:05 | disposition home or self-care (01) ==
LOC: ED 16:02
DX: L08.89 Other specified local infections of the skin and subcutaneous tissue (principal); M79.602 Pain in left arm; Z87.891 Personal history of nicotine dependence; Z90.49 Acquired absence of other specified parts of digestive tract; Z98.890 Other specified postprocedural states; Z98.42 Cataract extraction status, left eye; Z98.41 Cataract extraction status, right eye; Z79.01 Long term (current) use of anticoagulants; Z79.899 Other long term (current) drug therapy

== ENCOUNTER → 2018-12-05 | Outpatient (CLI) | payer MEDICARE, OTHER ==
[~2018-12-05] MED LIST changes: +CEPHALEXIN500 M1 PO; +DOXYCYCLINE100 M3 PO; +LISINOPRIL20 MG PO; +Zestril,Prinivi40 MG PO
== END | disposition home or self-care (01) ==
LOC: ORTHO 01:15
DX: S82.891D Other fracture of right lower leg, subsequent encounter for closed fracture with routine healing (principal); M25.471 Effusion, right ankle; X58.XXXD Exposure to other specified factors, subsequent encounter

== ENCOUNTER → 2019-01-02 | Outpatient (CLI) | payer MEDICARE, OTHER | END | disposition home or self-care (01) | LOC: RAD 14:46 | DX: S82.891D Other fracture of right lower leg, subsequent encounter for closed fracture with routine healing (principal); M81.0 Age-related osteoporosis without current pathological fracture; X58.XXXD Exposure to other specified factors, subsequent encounter ==

== ENCOUNTER → 2019-02-01 | Outpatient (CLI) | payer MEDICARE, OTHER ==
[~2019-02-01] MED LIST changes: +'CLONIDINE0.1 MG PO; +AMINOPHYLLIN200 MG PO; +AMITRIPTYLINE H10 M1 PO; +AMLODIPINE BES2.5 MG PO; +APRESOLINE10 MG PO; +CARVEDILOL12.5 MG PO; +COREG6.25 MG PO; +DOCUSATE SOD100 MG PO; +K-PHOS NEUTRAL250 MG PO; +LISINOPRIL5 MG PO; +NEPHRO-VITE RX1 EACH PO; +TEMAZEPAM7.5 MG PO; +WARFARIN SODIUM6 MG PO; +ZANAFLEX2 M1 PO
== END | disposition home or self-care (01) ==
LOC: RAD 01:48
DX: S82.64XD Nondisplaced fracture of lateral malleolus of right fibula, subsequent encounter for closed fracture with routine healing (principal); X58.XXXD Exposure to other specified factors, subsequent encounter

== ENCOUNTER 2019-02-08 23:22 | Inpatient (IN) | payer MEDICARE, OTHER, MEDICAID ==
[~2019-02-08] VITALS: Ht 172.7 cm; Wt 44.5 kg
--- NOTE | ~2019-02-08 | O ---
[place], [place] OPERATIVE NOTE [id number] UN[facility] #: [id number] ROOM: 525 DOCTOR: ATA TOVAR MD BIRTHDATE: [birth year] DOS: 02/12/2019 WHAT: Left hip. HOW: Fall. WHEN: 02/11/2019. WHERE: Fifth floor, [facility]. HISTORY: This is an 89-year-old male who was in a somewhat confused state yesterday morning and fell, complaining of left hip pain. Workup revealed a nondisplaced fracture of the left femoral neck. I recommended the patient be kept at bed rest and then undergo left femur ORIF using percutaneous technique. The most common significant risks were discussed with the patient and his son, Olayinka Evans. These risks include but are not limited to the following: Bleeding, infection, pain, functional limitations and functional problems, possible failure of proper healing, possible repeat surgery including possible hip replacement, possible life and/or limb threatening risks. They understood and were willing to proceed as outlined. PREOPERATIVE DIAGNOSIS: Nondisplaced left femur neck fracture, initial care (impacted subcapital fracture). POSTOPERATIVE DIAGNOSIS: Nondisplaced left femur neck fracture, initial care (impacted subcapital fracture). OPERATION: Percutaneous fixation, left femoral neck. SURGEON: Oralia Tovar M.D. ANESTHESIA: General. ESTIMATED BLOOD LOSS: Minimal. SPECIMEN: None. DRAINS: None. PACKING: None. FINDINGS: The patient had no displacement of the fracture and reduction appeared to be anatomic with three 7.3 mm screws. PROCEDURE NOTE DETAIL FOLLOWS: Following adequate anesthetic, the patient was placed on the fracture table with slight traction and internal rotation of the left femoral neck. Position was checked on AP and lateral views. The patient appeared to have an anatomic reduction. Ancef was administered. A timeout was performed. [place], [place] OPERATIVE NOTE NAME: [id number] UNIT #: [id number] ROOM: 525 DOCTOR: ATA TOVAR MD BIRTHDATE: [birth year] Following the preparation and draping, with a vertical isolation drape, we began localizing the best insertion points for his percutaneous screws. Once the posteroinferior screw location was determined, I made a small stab wound with a 10 blade knife. Hemostat was used to separate muscle down to the bone. A guide pin was inserted using a freehand technique, parallel to the femoral neck in the posteroinferior location. This was confirmed on AP, lateral and 20-degree lateral views on the C-arm fluoroscope. Parallel pins were then placed based on the posteroinferior pin through separate stab wounds using identical technique. Once all three guide pins were in good position, we measured the guide pins at almost 80 mm in length. I elected to insert an 80 mm screw with 32 mm threads in the central, anterior location and placed two 75 mm screws posterosuperior and posteroinferior. Position was checked on C-arm fluoroscopy and there was no obvious penetration of the screws at any point on all three views. Final x-rays were obtained. The wounds were stapled closed and dressing was applied consisting of Xeroform, 4 x 4s and ABD pad with tape. The patient was taken to the recovery room in stable and satisfactory condition. ATA TOVAR MD CM:OPRECORD:OPERATIVE NOTE [id number] ATA TOVAR MD 02/12/19 1419 interface
--- NOTE | ~2019-02-08 | CON ---
[place], [place] REPORT OF CONSULTATION NAME: SCOTT OTTO UNIT #: [id number] ROOM: 525 DOCTOR: ATA TOVAR MD BIRTHDATE: [birth year] DOS: WHAT: Left hip. HOW: Fall. WHEN: Early this morning. WHERE: [facility]. HISTORY: This is somewhat confused 89-year-old male who was in the hospital for unrelated problems. He apparently thought his was at the door and was trying to get to her. He fell sustaining an injury of his left hip. Initial x-rays were interpreted as negative, but continued pain was noted and a CT scan was obtained. A CT scan showed evidence of a femoral neck fracture. This was not significantly displaced. PAST MEDICAL HISTORY: The patient has significant valvular disease in the past with mechanical heart valve replacement, he is also on Coumadin chronically. MEDICATIONS: See hospital record. ALLERGIES: The patient denies significant allergies. SOCIAL HISTORY: The patient no longer lives with his spouse, as she is more demented than he and she now lives in a halfway. Apparently, the son does live in the same domicile as the patient. PRIOR SURGERIES: The patient denies major orthopedic surgeries in the past. He does have a history of mitral valve replacement, fistula resection, adenoidectomy, appendectomy, tonsillectomy, cataract removal, liver transplant in 2003. FAMILY HISTORY: Positive for multiple problems. Please see history and physical examination. REVIEW OF SYSTEMS: Please see history and physical examination. PHYSICAL EXAMINATION: VITAL SIGNS: Stable. He is afebrile. LEFT LOWER EXTREMITY: Skin shows no evidence of ecchymosis, erythema or skin lesions. Simple internal and external rotation of approximately 10 degrees reproduces groin pain in the left hip. Neurovascular status of the foot is intact with good plantar flexion, dorsiflexion of the toes. IMAGING: Radiographs were reviewed and do show a nondisplaced femoral neck fracture of the subcapital variety. IMPRESSION: Left femoral neck fracture, subcapital nondisplaced. [place], [place] REPORT OF CONSULTATION NAME: SCOTT OTTO UNIT #: [id number] ROOM: 525 DOCTOR: ATA TOVAR MD BIRTHDATE: [birth year] RECOMMENDATION: I recommend this patient, consider going forward with ORIF using a percutaneous technique as soon as possible. This is to prevent displacement in this demented patient. The most commonest and significant risks have been discussed with the patient. These risks include but are not limited to the following: Bleeding, infection, damage to neurovascular structures, possible continued pain, possible functional problems, possible failure of proper healing, possible repeat surgery, possible life and/or limb threatening risks. He understands and is willing to proceed as outlined. ATA TOVAR MD CM:CONSTR:REPORT OF CONSULTATION 1944 02/12/19 0817 interface
--- NOTE | ~2019-02-08 | PR ---
[place], [place] PROGRESS NOTE NAME: SCOTT OTTO [facility] #: [id number] UNIT #: [id number] ROOM: 525 DOCTOR: GLO MARTINES MD BIRTHDATE: [birth year] DOS: 02/10/2019 NEPHROLOGY PROGRESS NOTE TIME OF SERVICE: 3:00 p.m. HISTORY OF PRESENT ILLNESS: The patient is overall starting to improve in terms of mental status, still having some confusions at times and is still not to his original baseline, is able to tell me the [place] is outside his window now though and is able to tell me he is in [facility]. His son is at the bedside right now, has some difficulty with naming and other cognitive issues still, but blood pressures have been improving to 150s/50s to 60s overnight with some higher diastolics this morning, which I doubt are actually accurate. PHYSICAL EXAMINATION: MOST RECENT VITAL SIGNS: 97.5, 69, 16, 157/86, 98% on room air. GENERAL: Awake, alert. He is oriented to time, place and himself, less so to time. Insight is limited. He is cooperative, calm. Mood is normal. Affect is improving. HEENT: He is edentulous. No other oral ulcers. Extraocular muscles are intact. His conjunctival irritation is improving. No JVD or lymphadenopathy. He has axillary-axillary vein graft, which is nontender. Right IJ tunneled dialysis catheter, which is intact and nontender. Prior AV fistula is clean and dry. No significant peripheral pitting edema or cyanosis. ABDOMEN: Soft without rebound or guarding. Liver transplant is nontender. LUNGS: Fairly clear bilaterally without audible rales or wheeze. CARDIOVASCULAR: Rate regular. No rub. Positive murmur. LABORATORY DATA AND DIAGNOSTICS: White blood cell count 6.1, hemoglobin 9.9, platelets 220. INR 2.5. Sodium 133, potassium 3.4, chloride 99, bicarbonate 30, BUN 7, creatinine 1.89, glucose 80, calcium 8.2, magnesium 1.8. A1c was less than 3.5. Albumin yesterday 3.0. Vitamin D normal. B12 and folate normal. Thyroid function studies were normal. ASSESSMENT AND PLAN: 1. End-stage renal disease, hemodialysis Tuesday, Tuesday, and Tuesday. Dose medications for dialytic clearance and GFR less than 10. His low BUN and creatinine are result of very poor overall protein-calorie malnutrition. Encouraged oral intake and improve overall sarcopenia and muscle strength as much as tolerated. He has lost significant amounts of weight and I suspect that his dry weight needs to be reduced to reflect this in some of his blood pressure elevation, which was severe on admission. It is related to some volume overload despite the lack of edema. He tolerated ultrafiltration fairly well yesterday with no acute complaints. 2. Anemia, stable. Continue erythropoietin stimulating agents with dialysis as an outpatient and we will follow his INR for his history of valve replacement and he is doing fairly well, overall from that standpoint from his advanced age. All the things were discussed with him and his son at the bedside. [place], [place] PROGRESS NOTE NAME: SCOTT OTTO UNIT #: [id number] ROOM: [facility] DOCTOR: GLO MARTINES MD BIRTHDATE: [birth year] GLO MARTINES MD CM:PNTRANS [id number] GLO MARTINES MD 02/11/19 0012 interface
--- NOTE | ~2019-02-08 | EKG ---
[place], [place] ELECTROCARDIOGRAM REPORT [facility]: [id number] UNIT #: [id number] ROOM: 525 DOCTOR: MEG DRAFT REPORT BIRTHDATE: [birth year] [facility] Test Date: 2019-02-11 Test Time: 03:05:17 Pat Name: SCOTT OTTO Department: Room: [facility] 1 Gender: M Range Rider: Charla Tillman : 1930 Requested By: LINETTE GALINDO Order Number: [id number] Reading MD: Megha Morales MD Measurements Intervals [place] Rate: 72 P: 60 NH: 220 QRS: 78 QRSD: 107 T: 19 QT: 449 QTc: 492 Interpretive Statements Sinus rhythm Prolonged NH interval Probable left atrial enlargement Abnormal R-wave progression, late transition Borderline prolonged QT interval Compared to ECG 02/08/2019 23:53:03 Left ventricular hypertrophy no longer present Electronically Signed On 02-12-2019 10:07:58 PDT by Megha Morales MD CM:EKGRPT:ELECTROCARDIOGRAM REPORT [id number] LINETTE GALINDO EPIPHCELESTE DRAFT REPORT LINETTE GALINDO
--- NOTE | ~2019-02-08 | EKG ---
[place], [place] ELECTROCARDIOGRAM REPORT NAME: SCOTT OTTO UNIT #: [id number] ROOM: 525 DOCTOR: EPIPHANY DRAFT REPORT BIRTHDATE: [birth year] [facility] Test Date: 2019-02-08 Test Time: 23:53:03 Pat Name: SCOTT OTTO Department: Room: 525 Gender: M Technician Test Systems: Liliana Ortez : 1930 Requested By: SHANNAN MARTINEZ Order Number: [id number] Reading MD: Khushbu Pedroza MD Measurements Intervals [place] Rate: 80 P: 47 MO: 219 QRS: 54 QRSD: 101 T: 19 QT: 427 QTc: 493 Interpretive Statements Sinus rhythm Borderline prolonged MO interval Probable left atrial enlargement Left ventricular hypertrophy Borderline prolonged QT interval Compared to ECG 11/10/2018 19:56:33 Left ventricular hypertrophy now present Electronically Signed On 02-09-2019 6:04:06 PDT by Khushbu Pedroza MD CM:EKGRPT:ELECTROCARDIOGRAM REPORT [id number] SHANNAN MRATINEZ MD EPIPHANY DRAFT REPORT SHANNAN MARTINEZ MD
[~2019-02-08 23:22] MED LIST changes: -'CLONIDINE0.1 MG PO; -AMINOPHYLLIN200 MG PO; -AMITRIPTYLINE H10 M1 PO; -AMLODIPINE BES2.5 MG PO; -APRESOLINE10 MG PO; -CARVEDILOL12.5 MG PO; -COREG6.25 MG PO; -DOCUSATE SOD100 MG PO; -K-PHOS NEUTRAL250 MG PO; -LISINOPRIL5 MG PO; -NEPHRO-VITE RX1 EACH PO; -TEMAZEPAM7.5 MG PO; -WARFARIN SODIUM6 MG PO; -ZANAFLEX2 M1 PO
[2019-02-08 23:26] VITALS: BP 203/87
[2019-02-09] VITALS (8 sets, daily range): BP systolic 112–200; BP diastolic 52–104
[2019-02-09 00:24] LABS: BASO % 0.3 % (0.0-1.0); EOS % 0.1 % (1.0-4.0); HEMATOCRIT 36.5 % (42.0-52.0); HEMOGLOBIN 10.7 g/dl (14.0-18.0); LYMPH # 1.1 10*3/uL (1.3-4.4); LYMPH % 14.8 % (27.0-41.0); MEAN CELL VOLUME 99.7 fl (80.0-94.0); MEAN CORPUSCULAR HGB 29.2 pg (27.0-31.0); MEAN CORPUSCULAR HGB CONC 29.3 g/dl (33.0-37.0); MEAN PLATELET VOLUME 9.6 fl (9.6-12.3); MONO # 0.6 10*3/uL (0.1-1.0); MONO % 8.1 % (3.0-9.0); NEUT # 5.8 10*3/uL (2.3-7.9); NEUT % 76.3 % (47.0-73.0); PLATELET COUNT AUTOMATED 249 10*3/uL (130-400); RED BLOOD COUNT 3.66 10*6/uL (4.50-5.90); RED CELL DISTRI WIDTH 16.5 % (0-14.5); WHITE BLOOD COUNT 7.6 10*3/uL (4.8-10.8)
[2019-02-09 00:35] LABS: ACT PARTIAL THROMBO TIME 42.9 SECONDS (20.0-32.1)
[2019-02-09 00:40] LABS: ALBUMIN 2.9 gm/dl (3.1-4.5); CREATININE 3.15 mg/dL (0.70-1.30); TOTAL PROTEIN 7.4 gm/dL (6.4-8.2); TROPONIN I 0.031 ng/ml (<0.045)
--- NOTE | 2019-02-09 02:27 | NUR ---
PATIENT'S SON IS DECLINING WOUND PHOTOS AT THIS TIME
--- NOTE | 2019-02-09 02:45 | NUR ---
Time: 244 A 89 year old M admitted to 5E under services of CHARITO BENOIT DO, Pt. arrived via bed from ER. Chief complaint: INCREASED CONFUSION AND WEAKNESS AT HOME . NATE HERNÁNDEZ
[2019-02-09] MEDS ORDERED: WARFARIN SODIUM6 MG PO (03:29)
[2019-02-09] MEDS ORDERED: TEMAZEPAM7.5 MG PO (03:30)
[2019-02-09] MEDS ORDERED: CARVEDILOL12.5 MG PO (03:31)
[2019-02-09] MEDS ORDERED: AMITRIPTYLINE H10 M1 PO (03:31)
[2019-02-09] MEDS ORDERED: FUROSEMIDE40 MG PO (03:33)
[2019-02-09] MEDS ORDERED: MYCOPHENOLATE500 MG PO (03:34)
[2019-02-09] MEDS ORDERED: LISINOPRIL5 MG PO (03:35)
[2019-02-09] MEDS ORDERED: TERAZOSIN HCL1 M1 PO (03:35)
[2019-02-09] MEDS ORDERED: CYCLOSPORINE25 M2 PO (03:36)
--- NOTE | 2019-02-09 05:00 | NUR ---
PATIENT CONFUSED, REPEATEDLY REMOVING HIDES SOAKER. PATIENT DNR-CC. DR PAULINO CONTACTED, NEW ORDERS RECEIVED. ALSO INFORMED MED REC UP TO DATE
[2019-02-09 08:27] LABS: BASO % 0.3 % (0.0-1.0); EOS % 0.1 % (1.0-4.0); HEMATOCRIT 34.9 % (42.0-52.0); HEMOGLOBIN 10.2 g/dl (14.0-18.0); LYMPH # 1.5 10*3/uL (1.3-4.4); LYMPH % 15.9 % (27.0-41.0); MEAN CELL VOLUME 98.6 fl (80.0-94.0); MEAN CORPUSCULAR HGB 28.8 pg (27.0-31.0); MEAN CORPUSCULAR HGB CONC 29.2 g/dl (33.0-37.0); MEAN PLATELET VOLUME 10.3 fl (9.6-12.3); MONO # 0.9 10*3/uL (0.1-1.0); MONO % 9.7 % (3.0-9.0); NEUT # 7.1 10*3/uL (2.3-7.9); NEUT % 73.5 % (47.0-73.0); PLATELET COUNT AUTOMATED 281 10*3/uL (130-400); RED BLOOD COUNT 3.54 10*6/uL (4.50-5.90); RED CELL DISTRI WIDTH 16.7 % (0-14.5); WHITE BLOOD COUNT 9.7 10*3/uL (4.8-10.8)
[2019-02-09 08:34] LABS: ACT PARTIAL THROMBO TIME 41.9 SECONDS (20.0-32.1); INTERNATIONAL NORM RATIO 2.8 (2.0-3.5)
[2019-02-09 08:38] LABS: CREATININE 3.44 mg/dL (0.70-1.30); FREE T4 1.09 ng/dl (0.76-1.46); PHOSPHOROUS 1.8 mg/dL (2.5-4.9); POTASSIUM 4.1 mmol/L (3.5-5.1); TOTAL PROTEIN 7.4 gm/dL (6.4-8.2)
[2019-02-09 08:42] LABS: THYROID STIM HORMONE (HS) 0.847 uIU/ml (0.358-4.75)
--- NOTE | 2019-02-09 08:44 | NUR ---
Patient not available as he is with nursing. Jacque Us OTR/l
[2019-02-09 09:00] LABS: VITAMIN D, 25-HYDROXY 46.2 ng/mL (30-100)
--- NOTE | 2019-02-09 10:42 | NUR ---
Upon arrival for occupational therapy evaluation, patient was near lower end of bed. OT assisted patient in bed and reapplied bed alarm, Patient was incontinent of bowel and verbalizing, he was attempting to go home. He was lethargic and confused. Nursing informed of bowel incontinence. OTR will attempt evaluation at a later date. Jeimy Us OTR/noemi
--- NOTE | 2019-02-09 10:43 | NUR ---
PHYSICAL THERAPY Physical therapy evaluation attempted. Patient confused and lethargic at this time. Will return again at a later date to complete PT evaluation. Thank you. Raiza Skinner,PT,DPT
--- NOTE | 2019-02-09 15:27 | NUR ---
PHONED CONTACT LENS BLOCKER THIS MORNING PER DR. MARTINES INSTRUCTIONS. SHE CALLED BACK AND STATED SHE WOULD DIALYZE THIS AFTERNOON. PT HAS NOT RECIEVED TREATMENT YET, AWAITING RETURN CALL FROM RN FOR MORE INFORMATION TO WHEN HE WILL RECIEVE HIS TREATMENT.
--- NOTE | 2019-02-09 18:40 | NUR ---
PT TAKEN TO DIALYSIS AT APPROX 1530. BEHAVIORAL GENETICIST STATED SHE PHONED THAT SHE WOULD BE IN AT THAT TIME FOR MR. OTTO. HE IS DIALYZING AT PRESENT AND APPEARS TO BE COMFORTABLE AT THIS TIME.
--- NOTE | 2019-02-09 19:54 | NUR ---
24 HR chart check completed.
--- NOTE | 2019-02-09 21:00 | NUR ---
RETURNED FROM DIALYSIS
--- NOTE | 2019-02-09 21:32 | NUR ---
RESTING IN BED. PLEASANTLY CONFUSED. RESPIRATIONS EASY. LUNGS DIMINISHED. PULSE OX 98% RA. IV FLUIDS INFUSING PER ORDER. CALL LIGHT WITHIN REACH. BED ALARM MAINTAINED FOR SAFETY
[2019-02-10] VITALS: BP 155/58
--- NOTE | 2019-02-10 | NUR ---
MEDS EFFECTIVE. SLEEPING. RESPIRATIONS EASY. VSS. CALL LIGHT WITHIN REACH. BED ALARM MAINTAINED FOR SAFETY
--- NOTE | 2019-02-10 06:00 | NUR ---
slept throughout night with no distress noted. respirations easy. call light within reach. no voiced complaints this shift. bed alarm maintained for safety
[2019-02-10 06:46] LABS: BASO % 0.5 % (0.0-1.0); EOS % 0.5 % (1.0-4.0); HEMATOCRIT 33.7 % (42.0-52.0); HEMOGLOBIN 9.9 g/dl (14.0-18.0); LYMPH # 1.1 10*3/uL (1.3-4.4); LYMPH % 18.3 % (27.0-41.0); MEAN CELL VOLUME 98.5 fl (80.0-94.0); MEAN CORPUSCULAR HGB 28.9 pg (27.0-31.0); MEAN CORPUSCULAR HGB CONC 29.4 g/dl (33.0-37.0); MEAN PLATELET VOLUME 9.6 fl (9.6-12.3); MONO % 15.5 % (3.0-9.0); NEUT % 64.9 % (47.0-73.0); PLATELET COUNT AUTOMATED 220 10*3/uL (130-400); RED BLOOD COUNT 3.42 10*6/uL (4.50-5.90); RED CELL DISTRI WIDTH 16.8 % (0-14.5); WHITE BLOOD COUNT 6.1 10*3/uL (4.8-10.8)
[2019-02-10 06:50] LABS: INTERNATIONAL NORM RATIO 2.5 (2.0-3.5)
[2019-02-10 06:55] LABS: CREATININE 1.89 mg/dL (0.70-1.30); POTASSIUM 3.4 mmol/L (3.5-5.1)
[2019-02-10 08:00] VITALS: BP 162/97
[2019-02-10 12:00] VITALS: BP 157/86
--- NOTE | 2019-02-10 13:00 | NUR ---
PHYSICAL THERAPY PT EVAL COMPLETED 02/10/19 ON LEVEL 5:FULL EVAL TO FOLLOW. RECOMMEND PT WHILE HERE TO ADDRESS DECREASED STRENGTH AND FUNCTIONAL MOBILITY . PT EVAL IS MODERATE COMPLEXITY: [id number]. D/C REC: SNF FOR SHORT TERM REHAB DUE TO DECRESED FUNCTIONAL STATUS. THANK YOU FOR REFERRAL SYDNI WRIGHT PT
[2019-02-10 16:00] VITALS: BP 136/64
[2019-02-10 20:00] VITALS: BP 146/86
[2019-02-11] VITALS: BP 149/85
[2019-02-11 02:30] VITALS: BP 178/102
--- NOTE | 2019-02-11 02:30 | NUR ---
PATIENT'S BED ALARM WENT OFF. RAN INTO ROOM AND PATIENT HIT THE FLOOR PRIOR TO GETTING INTO ROOM. DID NOT SEE IF PATIENT HIT HIS HEAD OR NOT. PATIENT LYING ON LEFT SIDE. BLOOD COMING FROM LEFT ELBOW. PATIENT PICKED UP OFF FLOOR BY LESLY CLARK RN AND MYSELF. DENIES COMPLAINTS OF PAIN EXCEPT TO LEFT ELBOW AND LEFT HIP. VITAL SIGNS TAKEN. DR. GALINDO NOTIFIED. NEW ORDERS RECEIVED.
[2019-02-11 03:08] LABS: BASO % 0.2 % (0.0-1.0); EOS # 0.1 10*3/uL (0.0-0.4); EOS % 0.6 % (1.0-4.0); HEMATOCRIT 34.3 % (42.0-52.0); HEMOGLOBIN 10.2 g/dl (14.0-18.0); LYMPH # 1.3 10*3/uL (1.3-4.4); LYMPH % 12.7 % (27.0-41.0); MEAN CELL VOLUME 98.8 fl (80.0-94.0); MEAN CORPUSCULAR HGB 29.4 pg (27.0-31.0); MEAN CORPUSCULAR HGB CONC 29.7 g/dl (33.0-37.0); MEAN PLATELET VOLUME 9.5 fl (9.6-12.3); MONO # 1.2 10*3/uL (0.1-1.0); MONO % 11.7 % (3.0-9.0); NEUT # 7.6 10*3/uL (2.3-7.9); NEUT % 74.1 % (47.0-73.0); PLATELET COUNT AUTOMATED 227 10*3/uL (130-400); RED BLOOD COUNT 3.47 10*6/uL (4.50-5.90); RED CELL DISTRI WIDTH 17.1 % (0-14.5); WHITE BLOOD COUNT 10.2 10*3/uL (4.8-10.8)
[2019-02-11 03:19] LABS: INTERNATIONAL NORM RATIO 3.1 (2.0-3.5)
[2019-02-11 03:20] LABS: ALBUMIN 2.9 gm/dl (3.1-4.5); CREATININE 2.83 mg/dL (0.70-1.30); POTASSIUM 3.5 mmol/L (3.5-5.1)
[2019-02-11 03:21] LABS: PHOSPHOROUS 1.9 mg/dL (2.5-4.9)
[2019-02-11 03:24] LABS: CREATININE 2.85 mg/dL (0.70-1.30); POTASSIUM 3.5 mmol/L (3.5-5.1); TROPONIN I 0.041 ng/ml (<0.045)
[2019-02-11 08:00] VITALS: BP 198/78
--- NOTE | 2019-02-11 11:24 | NUR ---
MESSAGE LEFT FOR DR TOVAR TO CALL THE 5TH FLOOR FOR A CONSULT.
[2019-02-11 12:00] VITALS: BP 167/82
--- NOTE | 2019-02-11 13:56 | NUR ---
tylenol 650mg po given per patient request for left hip pain.
[2019-02-11 19:08] LABS: INTERNATIONAL NORM RATIO 4.2 (2.0-3.5)
[2019-02-12] VITALS (11 sets, daily range): BP systolic 142–191; BP diastolic 62–94
[2019-02-12 00:05] LABS: ACT PARTIAL THROMBO TIME 50.7 SECONDS (20.0-32.1); INTERNATIONAL NORM RATIO 3.9 (2.0-3.5)
--- NOTE | 2019-02-12 01:18 | NUR ---
SPOKE WITH AT THIS TIME. EXPLAINED TO HIM THAT THE PATIENTS PTT WAS 50.4 AND A BOLUS WAS PROFILED. ON THE SLIDING SCALE IT STATED TO GIVE THE PATIENT A BOLUS IF THE PTT IS LESS THAN 24, BUT THE BOLUS THAT PROFILED STATED TO GIVE IT IF IT WAS BETWEEN 24.1-52.9. HE STATED TO JUST FORGET THE BOLUS AND RUN THE DRIP AT THE RECOMMENED START RATE
[2019-02-12 06:45] LABS: BASO % 0.3 % (0.0-1.0); EOS % 0.3 % (1.0-4.0); HEMATOCRIT 30.2 % (42.0-52.0); HEMOGLOBIN 9.1 g/dl (14.0-18.0); LYMPH # 1.2 10*3/uL (1.3-4.4); LYMPH % 13.2 % (27.0-41.0); MEAN CELL VOLUME 97.1 fl (80.0-94.0); MEAN CORPUSCULAR HGB 29.3 pg (27.0-31.0); MEAN CORPUSCULAR HGB CONC 30.1 g/dl (33.0-37.0); MEAN PLATELET VOLUME 9.8 fl (9.6-12.3); MONO # 0.9 10*3/uL (0.1-1.0); NEUT # 7.1 10*3/uL (2.3-7.9); NEUT % 75.9 % (47.0-73.0); PLATELET COUNT AUTOMATED 229 10*3/uL (130-400); RED BLOOD COUNT 3.11 10*6/uL (4.50-5.90); RED CELL DISTRI WIDTH 16.9 % (0-14.5); WHITE BLOOD COUNT 9.4 10*3/uL (4.8-10.8)
[2019-02-12 06:49] LABS: INTERNATIONAL NORM RATIO 2.1 (2.0-3.5)
[2019-02-12 07:38] LABS: ALBUMIN 2.6 gm/dl (3.1-4.5); POTASSIUM 3.9 mmol/L (3.5-5.1)
[2019-02-12 07:42] LABS: CREATININE 3.57 mg/dL (0.70-1.30); TOTAL PROTEIN 6.6 gm/dL (6.4-8.2)
--- NOTE | 2019-02-12 08:30 | NUR ---
Patient had a fall and sustained left hip fracture. Awaiting further orthopedic intervention and weight bearing before continued OT intervention. Thank you. Jacque Us OTR/Kristina
--- NOTE | 2019-02-12 09:18 | NUR ---
PHYSICAL THERAPY Physical therapy treatment to be placed on hold due to inpatient fall and pending hip surgery. Thank you Olga Mtz, PT, DPT
[2019-02-12 10:32] LABS: INTERNATIONAL NORM RATIO 1.7 (2.0-3.5)
--- NOTE | 2019-02-12 12:16 | NUR ---
PT MARCI FOR SURGERY, PHONE CONCENT OBTAINED WITH SOME IRAIS OTTO AND AND MYSELF WITNESS
--- NOTE | 2019-02-12 13:40 | NUR ---
PHYSICAL THERAPY Patient was out of his room this pm for Surgery and unavailable at this time for treatment. Will continue per POC as able. Nitish Beckman, STEWARD/STEWARDESS WINE
--- NOTE | 2019-02-12 14:19 | NUR ---
SNOW REMOVAL SUPERVISOR IN TO TALK WITH PT. PT OUT OF ROOM FOR SURGERY.
--- NOTE | 2019-02-12 15:05 | NUR ---
PT. IS UNABLE TO DO I/S AT THIS TIME. PT. ATTEMPTED I/S BUT NOT ABLE TO STAY AWAKE. RN NOTIFIED. SAT 10O ON 1.5 LITERS. HEART RATE 79.
--- NOTE | 2019-02-12 19:45 | NUR ---
Incentive spirometer instructed successfully. Patient has shown good effort.
[2019-02-13] VITALS: BP 148/58
--- NOTE | 2019-02-13 02:55 | NUR ---
24 HR chart check completed.
--- NOTE | 2019-02-13 04:36 | NUR ---
Patient sleeping. Respirations relaxed and easy. Siderails up . [place] on. HISSOM,BRANDON
[2019-02-13 05:34] LABS: BASO % 0.1 % (0.0-1.0); HEMATOCRIT 32.3 % (42.0-52.0); HEMOGLOBIN 9.6 g/dl (14.0-18.0); LYMPH # 1.2 10*3/uL (1.3-4.4); LYMPH % 11.8 % (27.0-41.0); MEAN CELL VOLUME 97.3 fl (80.0-94.0); MEAN CORPUSCULAR HGB 28.9 pg (27.0-31.0); MEAN CORPUSCULAR HGB CONC 29.7 g/dl (33.0-37.0); MONO # 1.2 10*3/uL (0.1-1.0); MONO % 11.8 % (3.0-9.0); NEUT # 7.8 10*3/uL (2.3-7.9); NEUT % 75.9 % (47.0-73.0); PLATELET COUNT AUTOMATED 208 10*3/uL (130-400); RED BLOOD COUNT 3.32 10*6/uL (4.50-5.90); RED CELL DISTRI WIDTH 16.9 % (0-14.5); WHITE BLOOD COUNT 10.2 10*3/uL (4.8-10.8)
[2019-02-13 05:48] LABS: ACT PARTIAL THROMBO TIME 55.5 SECONDS (20.0-32.1); INTERNATIONAL NORM RATIO 1.2 (2.0-3.5)
--- NOTE | 2019-02-13 06:46 | NUR ---
PHYSICAL THERAPY per new order from orthopedic surgeon patient underwent pinning of the L hip fracture and is now ordered TTWB on the LLE. Will resume PT effective today with WB precautions in place. thank you, Krystal Romo PT
--- NOTE | 2019-02-13 07:48 | NUR ---
OPERATIONS SUPPORT SPECIALIST received call from [facility]- Kristen Hampton. OPERATIONS SUPPORT SPECIALIST provided her with an update on patient status. -EVETTE Bravo
[2019-02-13 08:00] VITALS: BP 167/73
--- NOTE | 2019-02-13 08:10 | NUR ---
Patient had left hip pinning 02/13/[address] Ring and is now TTW LLE. Continue with OT per pOC with above WB precautions. Thank you. Jacque Us OTR/l
--- NOTE | 2019-02-13 09:00 | NUR ---
PT MEDICATED WITH PRN NORCO FOR C/O LEFT HIP PAIN. PT RATES PAIN 12/16. WILL REACCESS AND CONTINUE TO MONITOR.
--- NOTE | 2019-02-13 09:07 | NUR ---
Patient not available for occupational therapy evaluation as he is eating breakfast. Jacque Us OTR/l
--- NOTE | 2019-02-13 10:20 | NUR ---
PHYSICAL THERAPY Patient seen this am 1:1 for therapy visit and was supine in bed upon therapist arrival. Patient identified by name / and voices only mild L hip pain, but unable to place a number on it. Patient is toe touch weight bearing on L LE, transfering supine to sit EOB, use of overhead trapeze bar, MOD A, tolerating several minutes static EOB sit, SBA x 1. Patient was very pleasant, transfering sit to stand MIN A, use of wh walker standing support, while demonstrating initial difficulty maintaining TTWB. Patient received v/c to improve standing balance and was able to take 2-3 side steps to L for pre bed positioning. Patient faigues quickly and returned to supine in bed with call light, tray table, cell phone and both body / bed alarm for safety. Will continue per POC as tolerated, total treatment time 14 minutes. Nitish Beckman, SERVICE ENGINEER
--- NOTE | 2019-02-13 10:45 | NUR ---
Occupational Therapy evaluation completed on 5 with full eval to follow. Precautions include fall risk;bed, chair alarm, LLE TTWB, impaired cognition;memory and orientation,high complexity level 65723 via chart review, testing and evaluation. Recommend OT per pOC and inpatient rehab to enable return home w/son at [facility]. THank you. Jacque Us OTR/L
--- NOTE | 2019-02-13 11:06 | NUR ---
NET SOFTWARE DEVELOPER spoke with the patients son about a referral being sent to [facility] ([facility]) in [facility]. Patient son was agreeable. NET SOFTWARE DEVELOPER faxed referral over to [facility]. -EVETTE Bravo
[2019-02-13 12:00] VITALS: BP 151/54
--- NOTE | 2019-02-13 13:37 | NUR ---
PT HAS BEEN REFERRED TO [facility]. THEY ARE REVIEWING PT.
--- NOTE | 2019-02-13 13:40 | NUR ---
Card Doffer in to talk to patient. Patient states lives at HOME with SON. There are FEW steps in the home. Physician: ENRICO MERCEDES Pharmacy: [facility] Home health services: NONE Patient's level of ADLs: MAX ASSIST Patient has working utilities: YES DME: [facility]IGO Follow-up physician's appointment after d/c: WILL BE MADE BY HOSPITALIST NURSE DIRECTOR ON DISCHARGE Does patient want to access PORTAL?: NO Discharge plan PT WAS LIVING WITH SON AT HOME. PT HAS BEEN REFERRED TO [facility] FOR REHAB DUE TO NO MORE SNF DAYS AVAILABLE. WILL CONTINUE TO FOLLOW. . LEONEL STEWART
--- NOTE | 2019-02-13 14:10 | NUR ---
PHYSICAL THERAPY Patient seen this pm 1:1 for therapy visit and was supine in bed upon therapist arrival. Patient presented with continuous IV treatment and was very pleasant / talkative this afternoon. Patient reports no c/o's pain and is toe touch weight bearing on L LE. Patient instructed on use of overhead trapeze bar to improve bed mobility, transfers and pressure relief of L hip secondary to recent hip surgery. Patient demonstrated good understanding and performed B side to side positioning SBA, however demonstrated difficulty with HOB positioning due to c/o of L hip pain. Patient also completed supine B LE therex, all planes, AROM R LE and AAROM L LE, x 10 reps each to improve ROM / strength. Patient remained in bed with call light, tray table, telephone and bed / body alarm for safety. Will continue per POC as tolerated, total treatment time 14 minutes. Nitish Beckman, ARTIST MANAGER
[2019-02-13 16:00] VITALS: BP 171/58
[2019-02-13 17:58] LABS: BILIRUBIN NEGATIVE (NEGATIVE); BLOOD 2+ (NEGATIVE); CLARITY CLOUDY (CLEAR); COLOR YELLOW (YELLOW); GLUCOSE NEGATIVE (NEGATIVE); KETONE NEGATIVE (NEGATIVE); LEUKO ESTERASE 3+ (NEGATIVE); NITRITE NEGATIVE (NEGATIVE); PH 6.5 (5.0-9.0); SPECIFIC GRAVITY 1.015 (1.005-1.030); UROBILINOGEN 0.2 E.U./dl (0.2-1.0)
[2019-02-13 18:11] LABS: BACTERIA 2+; EPITHELIAL CELLS 0-2; WBC TNTC wbc/hpf (0-5)
[2019-02-13 20:00] VITALS: BP 155/59
--- NOTE | 2019-02-13 21:42 | NUR ---
PATIENT C/O LEFT HIP PAIN. MEDICATED AT THIS TIME WITH PRN NORCO. RATES PAIN 10/16. WILL CHECK EFFECTIVENESS.
[2019-02-14] VITALS (7 sets, daily range): BP systolic 115–206; BP diastolic 61–90
--- NOTE | 2019-02-14 00:50 | NUR ---
PER PATIENT NORCO EFFECTIVE. VOICES NO COMPLAINTS AT THIS TIME. WILL CONTINUE TO MONITOR.
--- NOTE | 2019-02-14 05:24 | NUR ---
CALLED TO THE FLOOR. PATIENT HAVING SEIZURE LIKE ACTIVITY. HAVING INTERMITTENT EPISODES OF UNCONTROLLED SHAKING. TOLD TO ORDER 1MG OF ATIVAN NOW. WILL CONTINUE TO MONITOR.
--- NOTE | 2019-02-14 06:15 | NUR ---
PATIENT SLEEPING, NO NOTICABLE SEIZURE LIKE ACTIVITY. WILL CONTINUE TO MONITOR.
[2019-02-14 06:26] LABS: BASO % 0.2 % (0.0-1.0); EOS # 0.1 10*3/uL (0.0-0.4); EOS % 0.6 % (1.0-4.0); HEMOGLOBIN 9.3 g/dl (14.0-18.0); LYMPH # 1.3 10*3/uL (1.3-4.4); LYMPH % 14.5 % (27.0-41.0); MEAN CELL VOLUME 98.5 fl (80.0-94.0); MEAN CORPUSCULAR HGB 28.6 pg (27.0-31.0); MEAN CORPUSCULAR HGB CONC 29.1 g/dl (33.0-37.0); MEAN PLATELET VOLUME 9.8 fl (9.6-12.3); MONO % 10.6 % (3.0-9.0); NEUT # 6.7 10*3/uL (2.3-7.9); NEUT % 73.9 % (47.0-73.0); PLATELET COUNT AUTOMATED 206 10*3/uL (130-400); RED BLOOD COUNT 3.25 10*6/uL (4.50-5.90); RED CELL DISTRI WIDTH 16.3 % (0-14.5)
[2019-02-14 06:52] LABS: INTERNATIONAL NORM RATIO 1.1 (2.0-3.5)
--- NOTE | 2019-02-14 06:55 | NUR ---
NOTIFIED DR. PAULINO OF PATIENTS HIGH BLOOD PRESSURE EVEN AFTER BEING GIVEN THE IV ATIVAN. BP STILL 198/76 MANUALLY. TOLD ORDER 5MG IV APRESOLINE. WIILL CONTINUE TO MONITOR.
--- NOTE | 2019-02-14 07:45 | NUR ---
CRITICAL POWER TECHNICIAN faxed updates to [facility]. [facility] is requesting a HEP Panel for the patient. EVETTE spoke with Susana. She stated [facility] Rep [facility] spoke with her yesterday and they do not have a HEP Panel, just immunization records that she already had faxed over to [facility]. EVETTE will notify RN Hospitalist Coordinator about HEP Panel. -EVETTE Bravo
--- NOTE | 2019-02-14 09:37 | NUR ---
PHYSICAL THERAPY Patient was out of his room for dialysis this am and not available for treatment at this time. Will continue per POC as tolerated. Nitish Beckman, ORDER PICKER
--- NOTE | 2019-02-14 10:07 | NUR ---
OT NOTE Attempted to see pt this A.M. for OT session and upon arrival pt was out of the room for dialysis. Will check back at a later time/date and continue with POC as able. DYLAN Collado/Kristina
--- NOTE | 2019-02-14 12:29 | NUR ---
PT HAS BEEN REFERRED TO [facility]. THEY ARE REVIEWING CHART.
--- NOTE | 2019-02-14 13:13 | NUR ---
Patient has been accepted at [facility]. Salome from [facility] will be in to see the patient later today. EVETTE reached out to the patient son Cisco and left a voicemail. Salome stated that a outsole caser from their facility would assist with transportation for the patient when he is ready to be discharged from their facility. -EVETTE Bravo
--- NOTE | 2019-02-14 13:45 | NUR ---
PHYSICAL THERAPY Patient seen this pm 1;1 for therapy visit and was supine in bed upon therapist arrival. Patient identified by name / and reports no c/o's pain at this time. Patient was pleasant, but demonstrated several bouts of increased confusion while needing a little extra time to complete all therapy task. Patient becomes frustrated when rushed to do task and transfers supine to sit EOB with MOD A. Patient tolerated static EOB sit x several minutes to collect himself and reviewed L LE weight bearing precautions as patient is toe touch WB on L LE. Patient performed sit to stand transfer with use of wh walker standing support, Min A and was approx 75% with TTWB on L LE. Patient also completed SPT to bedside recliner chair, MIN/MOD A and remained with call light, tray table, telephone and body alarm for safety. Will continue per POC as tolerated, total treatment time 14 minutes. Nitish Beckman, ENGINEERING ADMINISTRATOR
--- NOTE | 2019-02-14 14:09 | NUR ---
OT NOTE Pt was seen this P.M. 1:1 for 17 minute OT session. Upon arrival pt was supine in bed. Pt identified by name and and had no complaints at this time. Pt transferred supine to sit EOB with modA and use of overhead trapeze bar. Pt completed sit to stand transfer from bed level with Renetta and use of w/w for UE support. Challenged pt's static standing tolerance needed for increased I in self care tasks and functional transfers. Pt was able to tolerate aprox 2 minutes at a time before sitting due to fatigue. While standing static pt maintained good weight bearing status with occasional verbal prompts. Pt then completed standing pivot from the EOB to the recliner with Renetta and use of w/w. Pt had poor carry over of weight bearing status throughout. Pt was left sitting upright in the recliner with call light in hand, tray table in place, and body alarm activated for safety. Continue with rec D/C plan to inpatient rehab. DYLAN Collado/Kristina
[2019-02-15] VITALS: BP 184/67
--- NOTE | 2019-02-15 02:03 | NUR ---
Patient sleeping. Respirations relaxed and easy. No signs of distress noted. Siderails up . [place]. JEANETTE HO
[2019-02-15 06:23] LABS: BASO % 0.2 % (0.0-1.0); EOS % 0.2 % (1.0-4.0); HEMATOCRIT 34.2 % (42.0-52.0); HEMOGLOBIN 10.1 g/dl (14.0-18.0); LYMPH # 1.5 10*3/uL (1.3-4.4); LYMPH % 15.8 % (27.0-41.0); MEAN CELL VOLUME 96.9 fl (80.0-94.0); MEAN CORPUSCULAR HGB 28.6 pg (27.0-31.0); MEAN CORPUSCULAR HGB CONC 29.5 g/dl (33.0-37.0); MEAN PLATELET VOLUME 10.1 fl (9.6-12.3); MONO % 10.9 % (3.0-9.0); NEUT # 6.7 10*3/uL (2.3-7.9); NEUT % 72.4 % (47.0-73.0); PLATELET COUNT AUTOMATED 223 10*3/uL (130-400); RED BLOOD COUNT 3.53 10*6/uL (4.50-5.90); RED CELL DISTRI WIDTH 16.1 % (0-14.5); WHITE BLOOD COUNT 9.3 10*3/uL (4.8-10.8)
[2019-02-15 06:26] LABS: ALBUMIN 2.5 gm/dl (3.1-4.5); ALKALINE PHOSPHATASE 134 U/L (45-117); BUN 28 mg/dl (7-24); CHLORIDE 96 mmol/L (98-107); CREATININE 2.59 mg/dL (0.70-1.30); PHOSPHOROUS 1.9 mg/dL (2.5-4.9); POTASSIUM 4.9 mmol/L (3.5-5.1); SGOT/AST 16 IU/L (3-35); SODIUM 131 mmol/L (136-145); TOTAL PROTEIN 6.8 gm/dL (6.4-8.2)
[2019-02-15 06:30] LABS: SGPT/ALT < 6 U/L (12-78)
[2019-02-15 06:44] LABS: INTERNATIONAL NORM RATIO 1.4 (2.0-3.5)
[2019-02-15 08:00] VITALS: BP 164/61
--- NOTE | 2019-02-15 08:25 | NUR ---
Patient has been accepted to [facility] and can go when medically stable. REFRIGERATING ENGINEER HEAD [facility] -EVETTE Bravo
--- NOTE | 2019-02-15 08:40 | NUR ---
OT NOTE Pt was seen this A.M. 1:1 for 17 minute OT session. Upon arrival pt was supine in bed. Pt identified by name and and had no complaints at this time. Pt presented to therapy with increased confusion as indicated by poor orientation to place and stating "I walked the steps to the basement this morning." Pt transferred supine to sit EOB with Renetta and use of overhead trapeze bar. Sit to stand completed from bed level with Renetta and use of w/w for UE support. Challenged pt's dynamic standing tolerance needed for increased I and enhanced safety, pt was able to maintain F- standing balance requiring Renetta for UE support. Functional mobility was completed from EOB to the recliner with Renetta and use of w/w. Throughout pt required mod verbal prompts for maintaining toe touch weight bearing. Pt had good carry over when provided with porompts and fair when no prompts provided. Pt had one retrograde LOB that occured throughout mobility when turning. Educated pt on safety concerns with turns and pt had good carry over. Pt was left sitting upright in the recliner with call light in hand, tray table in place, and body alarm activated for safety. Continue with rec D/C plan to inpatient rehab. DYLAN Collado/Kristina
--- NOTE | 2019-02-15 09:15 | NUR ---
PHYSICAL THERAPY Patient seen this am 1:1 for therapy visit and was supine in bed upon therapist arrival. Patient identified by name / and reports no c/o's of pain this morning. Patient was pleasant, however a little confused at times while transfering supine to sit EOB with MIN A. Patient reviewed toe touch weight bearing precation prior to performing sit to stand transfer, MIN A, with use of wh walker standing support. Patient ambulated MIN A, wh walker, 20'x 1, demonstrating "step to" gait pattern, decreased stride and LOB x 1 retrograde while turning 90 degrees. Patient needed v/c to maintain TTWB during gait ex and was pretty 100% compliant with WB status. Patient remained in bedside chair with mild fatigue noted, call light, tray table and body alarm as breakfast arrived. Will continue per POC as tolerated, total treatment time 14 minutes. Nitish Beckman, PHYSICIAN GYNECOLOGIST
[2019-02-15] MEDS ORDERED: COUMADIN7.5 M1 PO (11:15)
[2019-02-15 12:00] VITALS: BP 150/59
--- NOTE | 2019-02-15 12:24 | NUR ---
ATTENDING AMBULATORY CARE was notified of patient discharge. ATTENDING AMBULATORY CARE spoke with Manisha. [facility] [place] and [facility]. All were unable to take the transport. ATTENDING AMBULATORY CARE contacted [facility]. They agreed to take the transport with a 6 pm pickup time. ATTENDING AMBULATORY CARE notified Manisha, Kyler Rodriges, and [facility] ([facility] ATTENDING AMBULATORY CARE will fax discharge orders to Salome, and will fax demographics to [facility]. -EVETTE Bravo
--- NOTE | 2019-02-15 13:16 | NUR ---
PT HAS BEEN ACCEPTED TO [facility] AND WILL GO TODAY. WILL CONTINUE TO FOLLOW.
--- NOTE | 2019-02-15 15:55 | NUR ---
CALLED TAMI BRAXTON TO MAKE SURE HE WAS AWARE OF PT DISCHARGE AT 6PM. PT STATES HE WAS NOTIFIED EARLIER.
[2019-02-15 16:00] VITALS: BP 136/78
--- NOTE | 2019-02-15 16:58 | NUR ---
OCCUPATIONAL THERAPY CO-SIGN I approve of the Occupational Therapy notes written above. JIMBO GREENBERG OTR/Kristina
--- NOTE | 2019-02-15 17:47 | NUR ---
REPORT CALLED TO [facility].
--- NOTE | 2019-02-15 18:49 | NUR ---
Discharge instructions reviewed with patient/family. Patient receptive and verbalizes understanding. Follow-up care arranged. Written instructions given to patient/family. ROGELIO SEGURA
[2019-02-16 07:09] LABS: HEPATITIS B SURFACE AG Negative (Negative); HEPATITIS C VIRUS ANTIBODY <0.1 s/co (0.0-0.9)
--- NOTE | 2019-02-16 15:30 | NUR ---
PHYSICAL THERAPY CO-SIGN I approve of the Physical Therapy notes written above. KEVIN CALDERON PT,DPT
== END 2019-02-15 18:49 | DRG 981 ==
LOC: ED 23:22 → EDHOLD 02-09 02:04 → 5E 02-09 02:04
PROVIDERS: Emergency Medicine; Emergency Medicine Emergency Medical Services; Internal Medicine; Orthopaedic Surgery; Registered Nurse; Student in an Organized Health Care Education/Training Program; ADMIT Internal Medicine
PROC: 5A1D70Z Performance of Urinary Filtration, Intermittent, Less than 6 Hours Per Day (ICD-10-PCS; principal; 2019-02-09)
PROC: 5A1D70Z Performance of Urinary Filtration, Intermittent, Less than 6 Hours Per Day (ICD-10-PCS; 2019-02-11)
PROC: 0QS735Z Reposition Left Upper Femur with External Fixation Device, Percutaneous Approach (ICD-10-PCS; 2019-02-12)
PROC: 5A1D70Z Performance of Urinary Filtration, Intermittent, Less than 6 Hours Per Day (ICD-10-PCS; 2019-02-14)
DX: G93.41 Metabolic encephalopathy (principal); N18.6 End stage renal disease; E43 Unspecified severe protein-calorie malnutrition; E87.1 Hypo-osmolality and hyponatremia; I50.32 Chronic diastolic (congestive) heart failure; I82.721 Chronic embolism and thrombosis of deep veins of right upper extremity; Z94.4 Liver transplant status; Z68.1 Body mass index [BMI] 19.9 or less, adult; M80.052A Age-related osteoporosis with current pathological fracture, left femur, initial encounter for fracture; I16.0 Hypertensive urgency; D53.9 Nutritional anemia, unspecified; D72.810 Lymphocytopenia; I34.1 Nonrheumatic mitral (valve) prolapse; K21.9 Gastro-esophageal reflux disease without esophagitis; D63.8 Anemia in other chronic diseases classified elsewhere; Z96.1 Presence of intraocular lens; N40.0 Benign prostatic hyperplasia without lower urinary tract symptoms; F32.9 Major depressive disorder, single episode, unspecified; F03.90 Unspecified dementia, unspecified severity, without behavioral disturbance, psychotic disturbance, mood disturbance, and anxiety; I11.0 Hypertensive heart disease with heart failure; R26.81 Unsteadiness on feet; E86.0 Dehydration; Z66 Do not resuscitate; Z51.5 Encounter for palliative care; M62.84 Sarcopenia; K74.60 Unspecified cirrhosis of liver; I48.0 Paroxysmal atrial fibrillation; W18.30XA Fall on same level, unspecified, initial encounter; Y92.238 Other place in hospital as the place of occurrence of the external cause; J84.10 Pulmonary fibrosis, unspecified; Y93.89 Activity, other specified; Y99.8 Other external cause status; Z99.2 Dependence on renal dialysis; Z95.2 Presence of prosthetic heart valve; Z86.73 Personal history of transient ischemic attack (TIA), and cerebral infarction without residual deficits; Z90.49 Acquired absence of other specified parts of digestive tract; Z98.42 Cataract extraction status, left eye; Z98.41 Cataract extraction status, right eye; Z87.891 Personal history of nicotine dependence; Z83.3 Family history of diabetes mellitus; Z82.49 Family history of ischemic heart disease and other diseases of the circulatory system; Z80.8 Family history of malignant neoplasm of other organs or systems; Z82.0 Family history of epilepsy and other diseases of the nervous system; Z79.899 Other long term (current) drug therapy; Z79.01 Long term (current) use of anticoagulants

== ENCOUNTER → 2019-03-01 | Outpatient (CLI) | payer MEDICARE, OTHER, MEDICAID ==
[~2019-03-01] MED LIST changes: +'CLONIDINE0.1 MG PO; +AMINOPHYLLIN200 MG PO; +AMITRIPTYLINE H10 M1 PO; +AMLODIPINE BES2.5 MG PO; +APRESOLINE10 MG PO; +CARVEDILOL12.5 MG PO; +COREG6.25 MG PO; +DOCUSATE SOD100 MG PO; +K-PHOS NEUTRAL250 MG PO; +LISINOPRIL5 MG PO; +NEPHRO-VITE RX1 EACH PO; +TEMAZEPAM7.5 MG PO; +WARFARIN SODIUM6 MG PO; +ZANAFLEX2 M1 PO
== END | disposition home or self-care (01) ==
LOC: RAD 01:07
DX: S82.64XD Nondisplaced fracture of lateral malleolus of right fibula, subsequent encounter for closed fracture with routine healing (principal); X58.XXXD Exposure to other specified factors, subsequent encounter

== ENCOUNTER 2019-03-08 14:31 | Inpatient (IN) | payer MEDICARE, OTHER, MEDICAID ==
[2019-03-08] VITALS (10 sets, daily range): BP systolic 117–131; BP diastolic 54–99
[~2019-03-08] VITALS: Ht 167.6 cm; Wt 61.7 kg
[~2019-03-08 14:31] MED LIST changes: -'CLONIDINE0.1 MG PO; -AMINOPHYLLIN200 MG PO; -AMLODIPINE BES2.5 MG PO; -APRESOLINE10 MG PO; -COREG6.25 MG PO; -DOCUSATE SOD100 MG PO; -K-PHOS NEUTRAL250 MG PO; -NEPHRO-VITE RX1 EACH PO; -ZANAFLEX2 M1 PO
--- NOTE | 2019-03-08 16:28 | NUR ---
PATIENT TAKEN UP BY FILE DRAWER FINISHER NORMAN AT THIS TIME.
--- NOTE | 2019-03-08 17:00 | NUR ---
Time: 1699 A 89 year old MALE admitted to 5E under services of ELIZABETH VÁZQUEZ DO. Pt. arrived via bed from ER. Chief complaint: ANEMIA. PATRICIA LERNER
--- NOTE | 2019-03-08 17:10 | NUR ---
WOUND CARE PHOTOS RO COCCYX/RIGHT BUTTOCK,LEFT ELBOW, RIGHT DUBON COMPLETED PER PROTOCOL. NOTIFIED ED AND NURSING CUTTING MACHINE TENDER HELPER. NURSING CUTTING MACHINE TENDER HELPER STAGED WOUNDS.
--- NOTE | 2019-03-08 18:13 | NUR ---
Informed consent obtained from Power of real estate associate attorney for Blood transfussion by Dr. ANDERSON. Patient identified by arm band. Vital signs recorded. Blood unit number verified by 2 R.N.'s. I.V. site satisfactory. Unit 1 started at a KVO rate with Normal Saline. PATRICIA LERNER
[2019-03-08] MEDS ORDERED: AMLODIPINE BES2.5 MG PO (18:27)
[2019-03-08] MEDS ORDERED: 'CLONIDINE0.1 MG PO (18:29)
[2019-03-08] MEDS ORDERED: DOCUSATE SOD100 MG PO (18:31)
[2019-03-08] MEDS ORDERED: WARFARIN SOD5 MG PO (18:32)
[2019-03-08] MEDS ORDERED: APRESOLINE10 MG PO (18:36)
[2019-03-08] MEDS ORDERED: K-PHOS NEUTRAL250 MG PO (18:37)
[2019-03-08] MEDS ORDERED: NEPHRO-VITE RX1 EACH PO (18:39)
[2019-03-08] MEDS ORDERED: ZANAFLEX2 M1 PO (18:43)
--- NOTE | 2019-03-08 19:35 | NUR ---
24 HOUR CHART CHECK COMPLETED
--- NOTE | 2019-03-08 20:00 | NUR ---
UNIT OF PACKED RED BLOOD CELLS CONTINUES TO INFUSE WITHOUT INCIDENT, PATIENT ASSESSMENT COMPLETED AT THIS TIME, PATIENT DENIES ANY SHORTNESS OF BREATH, PAIN OR CHEST PAIN, DENIES ANY SYMPTOMS OF TRANSFUSION REACTION. CALL LIGHT WITHIN REACH WILL CONTINUE TO MONITOR.
--- NOTE | 2019-03-08 21:35 | NUR ---
PACKED RED BLOOD CELLS COMPLETED AT THIS TIME, SEE TRANSFUSION RECORD.
--- NOTE | 2019-03-08 21:40 | NUR ---
TYLENOL GIVEN AT THIS TIME FOR HIP PAIN OF 8/10.
--- NOTE | 2019-03-08 22:20 | NUR ---
PATIENT STILL COMPLAINING OF PAIN AN 8/10 IN HIS HIP, UNRELEAVED WITH TYLENOL. DR. WHITE NOTIFIED, AWAITING ORDERS.
--- NOTE | 2019-03-08 22:53 | NUR ---
NORCO ORDERED FOR PATIENT CONTINUING PAIN, ADMINISTERED TO PATIENT FOR 8/10 PAIN IN HIP.
--- NOTE | 2019-03-08 23:40 | NUR ---
PATIENT STATED PAIN IS MUCH BETTER AT THIS TIME A 5/10. CALL LIGHT WITHIN REACH WILL CONTINUE TO MONITOR.
[2019-03-09] VITALS: BP 108/59
[2019-03-09 01:53] LABS: HEMATOCRIT 27.8 % (42.0-52.0); HEMOGLOBIN 8.3 g/dl (14.0-18.0)
--- NOTE | 2019-03-09 04:31 | NUR ---
SCOTT OTTO [id number] Please refer to the physician's history and physical for past medical history, comorbid conditions, and allergies. Diagnosis: ANEMIA,ACUTE METABOLIC ENCEPHALOPATHY Caden Score: 13,MODERATE RISK WOUND DESCRIPTIONS: Wound Number: 1 Location of the wound: right buttocks proximal Type of wound: unstageable Thickness: Full Size: 1.1cm x 1.0cm x <0.1cm Tunneling: none Undermining: none Sinus Tract: none Presence of Exudate: none Amount: none Color: Yellow Odor: None Periwound Skin Appearance: Erythema Wound edges: approximated Pain (associated with wound): tender to touch How does patient state this happened? pt unsure how this happened Wound Number: 2 Location of the wound: left elbow Thickness: Full Size: 3.2cm x 2.0cm x <0.1cm Tunneling: none Undermining: none Sinus Tract: none Presence of Exudate: none Amount: None Color: Brown, yellow Odor: None Periwound Skin Appearance: Normal Wound edges: approximated Pain (associated with wound): none at time of assessment How does patient state this happened? pt said this happened when he fell Wound Number: 3 Location of the wound: right rivera proximal Type of wound: skin tear Thickness: Partial Size: 2.7cm x 0.5cm x <0.1cm Tunneling: none Undermining: none Sinus Tract: none Presence of Exudate: none Amount: None Color: Brown, red Odor: None Periwound Skin Appearance: Erythema Wound edges: approximated Pain (associated with wound): none at time of assessment How does patient state this happened? pt stated this was from his fall Wound Number: 4 Location of the wound: right buttocks distal Type of wound: stage 2 Thickness: Partial Size: 1.1cm x 1.0cm x 0.1cm Tunneling: none Undermining: none Sinus Tract: none Presence of Exudate: Serous Amount: Light Color: red Odor: None Periwound Skin Appearance: Normal Wound edges: approximated Pain (associated with wound): none at time of assessment How does patient state this happened? pt unsure how this happened Wound Number: 5 Location of the wound: right rivera distal Type of wound: skin tear Thickness: Partial Size: 0.9cm x 0.5cm x <0.1cm Tunneling: none Undermining: none Sinus Tract: none Presence of Exudate: none Amount: None Color: Brown, red Odor: None Periwound Skin Appearance: Erythema Wound edges: approximated Pain (associated with wound): none at time of assessment How does patient state this happened? pt stated this was from his fall Patient has intact scabs noted to left rivera, left upper thigh, right upper thigh, no drainage noted at time of assessment, no erythema noted to surrounding areas at time of assessment. Surface the patient is resting on: Isoflex SKIN PREVENTION RECOMMENDATION: 1. Pressure redistribution support surface as appropriate 2. Elevate heels 3. Remove boots/TEDS every shift and reapply 4. Head of bed 30 degrees as tolerated 5. Assess nutrition and hydration 6. Manage moisture 7. Avoid the use of containment devices while in bed 8. Use absorptive products on surfaces limit layers of linens on bed 9. Turn and reposition every 1-2 hours in bed and every 1 hour in chair as tolerated 10. Weight shifts every 15 minutes while up in chair 11. Offloading with pillows or device to keep heels elevated off bed 12. Monitor skin at least every shift 13. Inspect under medical devices twice a day WOUND TREATMENT RECOMMENDATIONS: Consult Génesis GARCIA-BC for possible debridement. Unstageable guidelines: Cleanse right proximal buttocks with nss and apply sureprep around the wound thereahoney to wound bed and cover with optifoam gentle. Stage 2 guidelines: Cleanse right distal buttocks with nss and apply sureprep around the wound therahoney to wound bed and cover with optifoam gentle. Skin tear guidelines: Cleanse right proximal rivera, right distal rivera and left elbow with nss and apply therahoney to wound bed and cover with optifoam gentle. Wheelchair cushion when oob. Heel raiser pro boots to bilateral feet while in bed.
[2019-03-09 06:52] LABS: CREATININE 2.91 mg/dL (0.70-1.30); PHOSPHOROUS 4.6 mg/dL (2.5-4.9); POTASSIUM 3.7 mmol/L (3.5-5.1); TOTAL PROTEIN 6.8 gm/dL (6.4-8.2)
[2019-03-09 07:06] LABS: BASO % 0.3 % (0.0-1.0); EOS # 0.1 10*3/uL (0.0-0.4); EOS % 1.7 % (1.0-4.0); HEMATOCRIT 30.4 % (42.0-52.0); LYMPH # 1.1 10*3/uL (1.3-4.4); LYMPH % 15.3 % (27.0-41.0); MEAN CELL VOLUME 98.4 fl (80.0-94.0); MEAN CORPUSCULAR HGB 29.1 pg (27.0-31.0); MEAN CORPUSCULAR HGB CONC 29.6 g/dl (33.0-37.0); MEAN PLATELET VOLUME 9.7 fl (9.6-12.3); MONO # 0.8 10*3/uL (0.1-1.0); MONO % 11.8 % (3.0-9.0); NEUT % 70.5 % (47.0-73.0); PLATELET COUNT AUTOMATED 320 10*3/uL (130-400); RED BLOOD COUNT 3.09 10*6/uL (4.50-5.90); RED CELL DISTRI WIDTH 15.9 % (0-14.5); WHITE BLOOD COUNT 7.1 10*3/uL (4.8-10.8)
[2019-03-09 07:14] LABS: ACT PARTIAL THROMBO TIME 49.7 SECONDS (20.0-32.1); INTERNATIONAL NORM RATIO 2.4 (2.0-3.5)
[2019-03-09 08:00] VITALS: BP 123/55
--- NOTE | 2019-03-09 09:58 | NUR ---
Patient is short term at [facility]. Patient has been approved Medicaid per Kristen Rios- KENISHA. -EVETTE Bravo
--- NOTE | 2019-03-09 10:50 | NUR ---
Occupational Therapy evaluation completed on 5 with full eval to follow. Precautions include fall risk; bed alarm,severe left hip pain w/ any movement, mod+2 assist for transfers w/ walker,impaired ADLs, standing tolerance, high complexity level 76902 via chart review, testing and evaluation. Recommend OT per pOC and return to SNF for max ability to function. Thank you. Jeimy Us OTR/l
--- NOTE | 2019-03-09 11:01 | NUR ---
PHYSICAL THERAPY Physical therapy evaluation completed, 5E. Full details to follow. High complexity determined after evaluation, [id number]. PT to work on gait, transfer, safety, endurance, balance, bed mobility. Recommending SNF at discharge. Thank you Olga Mtz, PT, DPT
--- NOTE | 2019-03-09 11:55 | NUR ---
Dr. Magallanes notified of wound care recommendations.
[2019-03-09 12:00] VITALS: BP 125/52
--- NOTE | 2019-03-09 13:01 | NUR ---
PT IS CURRENTLY AT [facility] AND PER PT PLANS TO RETURN THERE WHEN MEDICALLY STABLE. DENIES HE WILL HAVE ANY OTHER NEEDS ON DISCHARGE. WILL CONTINUE TO FOLLOW.
[2019-03-09 16:00] VITALS: BP 120/50
[2019-03-10] VITALS: BP 124/53
--- NOTE | 2019-03-10 01:20 | NUR ---
DR FLOWERS NOTIFIED PATIENT HAS NO DNR PAPERWORK AND WANTS TO DISCUSS DNR WITH DR IN THE AM. PATIENT AWARE HE WILL BE FULL CODE OF NOW; PATIENT STATES OK.
[2019-03-10 06:31] LABS: BASO % 0.3 % (0.0-1.0); EOS # 0.1 10*3/uL (0.0-0.4); EOS % 1.7 % (1.0-4.0); HEMATOCRIT 32.5 % (42.0-52.0); HEMOGLOBIN 9.4 g/dl (14.0-18.0); LYMPH # 1.2 10*3/uL (1.3-4.4); LYMPH % 17.2 % (27.0-41.0); MEAN CELL VOLUME 99.7 fl (80.0-94.0); MEAN CORPUSCULAR HGB 28.8 pg (27.0-31.0); MEAN CORPUSCULAR HGB CONC 28.9 g/dl (33.0-37.0); MEAN PLATELET VOLUME 9.7 fl (9.6-12.3); MONO # 0.8 10*3/uL (0.1-1.0); NEUT # 4.8 10*3/uL (2.3-7.9); NEUT % 68.4 % (47.0-73.0); PLATELET COUNT AUTOMATED 346 10*3/uL (130-400); RED BLOOD COUNT 3.26 10*6/uL (4.50-5.90); RED CELL DISTRI WIDTH 15.9 % (0-14.5)
[2019-03-10 06:59] LABS: INTERNATIONAL NORM RATIO 2.4 (2.0-3.5)
[2019-03-10 08:00] VITALS: BP 107/42
[2019-03-10 08:27] LABS: CREATININE 2.13 mg/dL (0.70-1.30); POTASSIUM 3.4 mmol/L (3.5-5.1)
--- NOTE | 2019-03-10 11:32 | NUR ---
PT REFUSED D/C PHOTOS PER PROTOCOL D/T PAIN TO LEFT HIP.
[2019-03-10 12:00] VITALS: BP 100/52
--- NOTE | 2019-03-10 12:50 | NUR ---
Discharge instructions reviewed with patient/family. Patient receptive and verbalizes understanding. Follow-up care arranged. Written instructions given to patient/family. PATRICIA LERNER
--- NOTE | 2019-03-10 13:03 | NUR ---
REPORT CALLED TO [facility].
== END 2019-03-10 12:50 | disposition other institution (70) | DRG 70 ==
LOC: ED 14:31 → EDHOLD 15:07 → 5E 15:07
PROVIDERS: ADMIT Family Medicine
PROC: 30233N1 Transfusion of Nonautologous Red Blood Cells into Peripheral Vein, Percutaneous Approach (ICD-10-PCS; 2019-03-08)
PROC: 5A1D70Z Performance of Urinary Filtration, Intermittent, Less than 6 Hours Per Day (ICD-10-PCS; principal; 2019-03-09)
DX: G93.41 Metabolic encephalopathy (principal); E43 Unspecified severe protein-calorie malnutrition; N18.6 End stage renal disease; I50.32 Chronic diastolic (congestive) heart failure; I13.2 Hypertensive heart and chronic kidney disease with heart failure and with stage 5 chronic kidney disease, or end stage renal disease; K83.09 Other cholangitis; F33.9 Major depressive disorder, recurrent, unspecified; Z94.4 Liver transplant status; K74.60 Unspecified cirrhosis of liver; N40.0 Benign prostatic hyperplasia without lower urinary tract symptoms; K21.9 Gastro-esophageal reflux disease without esophagitis; I48.0 Paroxysmal atrial fibrillation; Z96.1 Presence of intraocular lens; D53.9 Nutritional anemia, unspecified; R79.1 Abnormal coagulation profile; J84.10 Pulmonary fibrosis, unspecified; I34.1 Nonrheumatic mitral (valve) prolapse; L89.312 Pressure ulcer of right buttock, stage 2; Z66 Do not resuscitate; Z51.5 Encounter for palliative care; Z86.73 Personal history of transient ischemic attack (TIA), and cerebral infarction without residual deficits; Z86.718 Personal history of other venous thrombosis and embolism; Z79.01 Long term (current) use of anticoagulants; Z79.899 Other long term (current) drug therapy; Z90.49 Acquired absence of other specified parts of digestive tract; Z90.89 Acquired absence of other organs; Z95.2 Presence of prosthetic heart valve; Z98.42 Cataract extraction status, left eye; Z98.41 Cataract extraction status, right eye; Z83.3 Family history of diabetes mellitus; Z82.49 Family history of ischemic heart disease and other diseases of the circulatory system; Z80.8 Family history of malignant neoplasm of other organs or systems; Z99.2 Dependence on renal dialysis; Z68.21 Body mass index [BMI] 21.0-21.9, adult

== ENCOUNTER 2019-03-12 22:14 | Inpatient (IN) | payer MEDICARE, OTHER, MEDICAID ==
[~2019-03-12] VITALS: Ht 165.1 cm; Wt 50.3 kg
[~2019-03-12 22:14] MED LIST changes: +'CLONIDINE0.1 MG PO; +AMLODIPINE BES2.5 MG PO; +APRESOLINE10 MG PO; +DOCUSATE SOD100 MG PO; +K-PHOS NEUTRAL250 MG PO; +NEPHRO-VITE RX1 EACH PO; +ZANAFLEX2 M1 PO
[2019-03-12 22:16] VITALS: BP 76/42
[2019-03-12 23:26] LABS: BASO % 0.2 % (0.0-1.0); EOS % 0.1 % (1.0-4.0); HEMATOCRIT 30.9 % (42.0-52.0); LYMPH % 8.6 % (27.0-41.0); MEAN CELL VOLUME 100.3 fl (80.0-94.0); MEAN CORPUSCULAR HGB 29.2 pg (27.0-31.0); MEAN CORPUSCULAR HGB CONC 29.1 g/dl (33.0-37.0); MEAN PLATELET VOLUME 9.6 fl (9.6-12.3); NEUT # 9.4 10*3/uL (2.3-7.9); NEUT % 81.7 % (47.0-73.0); PLATELET COUNT AUTOMATED 297 10*3/uL (130-400); RED BLOOD COUNT 3.08 10*6/uL (4.50-5.90); RED CELL DISTRI WIDTH 15.8 % (0-14.5); WHITE BLOOD COUNT 11.5 10*3/uL (4.8-10.8)
[2019-03-12 23:42] LABS: ALBUMIN 1.8 gm/dl (3.1-4.5); CREATININE 2.27 mg/dL (0.70-1.30); POTASSIUM 3.8 mmol/L (3.5-5.1); TOTAL PROTEIN 6.3 gm/dL (6.4-8.2); TROPONIN I 0.021 ng/ml (<0.045)
[2019-03-12 23:56] VITALS: BP 104/54
[2019-03-13 01:07] VITALS: BP 104/54
[2019-03-13 01:15] LABS: BILIRUBIN 1+ (NEGATIVE); BLOOD NEGATIVE (NEGATIVE); CLARITY CLEAR (CLEAR); COLOR YELLOW (YELLOW); GLUCOSE NEGATIVE (NEGATIVE); KETONE NEGATIVE (NEGATIVE); LEUKO ESTERASE NEGATIVE (NEGATIVE); NITRITE POSITIVE (NEGATIVE); SPECIFIC GRAVITY 1.015 (1.005-1.030); UROBILINOGEN 0.2 E.U./dl (0.2-1.0)
[2019-03-13 01:22] LABS: URINE AMPHETAMINES < 1000 (1000ng/ml); URINE BARBITURATES < 200 (200ng/ml); URINE BENZODIAZEPINES < 200 (200ng/ml); URINE CANNABINOIDS (THC) < 50 (50ng/ml); URINE COCAINE < 300 (300ng/ml); URINE METHADONE < 300 (300ng/ml); URINE OPIATES > 300 (300ng/ml)
[2019-03-13 01:23] LABS: URINE PHENCYCLIDINE < 25 (25ng/ml)
[2019-03-13 01:54] LABS: BACTERIA 1+; RBC 21-30 rbc/hpf (0-2); WBC 16-20 wbc/hpf (0-5)
[2019-03-13 02:20] VITALS: BP 101/50
[2019-03-13 05:07] VITALS: BP 118/50
[2019-03-13 06:12] LABS: BASO % 0.2 % (0.0-1.0); EOS % 0.1 % (1.0-4.0); HEMATOCRIT 31.4 % (42.0-52.0); HEMOGLOBIN 9.1 g/dl (14.0-18.0); LYMPH % 11.1 % (27.0-41.0); MEAN CELL VOLUME 99.7 fl (80.0-94.0); MEAN CORPUSCULAR HGB 28.9 pg (27.0-31.0); MEAN PLATELET VOLUME 9.6 fl (9.6-12.3); MONO # 0.9 10*3/uL (0.1-1.0); MONO % 9.8 % (3.0-9.0); NEUT # 7.1 10*3/uL (2.3-7.9); NEUT % 78.5 % (47.0-73.0); PLATELET COUNT AUTOMATED 317 10*3/uL (130-400); RED BLOOD COUNT 3.15 10*6/uL (4.50-5.90); RED CELL DISTRI WIDTH 15.8 % (0-14.5); WHITE BLOOD COUNT 9.1 10*3/uL (4.8-10.8)
[2019-03-13 06:20] LABS: CREATININE 2.48 mg/dL (0.70-1.30); PHOSPHOROUS 4.4 mg/dL (2.5-4.9)
--- NOTE | 2019-03-13 07:05 | NUR ---
PT REPORT RECEIVED, PT RESTING WITH EYES CLOSED. VITALS STABLE. PT IS ALERT TO PERSON AND PLACE AT THIS TIME. EASILY AROUSED. MEAL TRAY ORDERED.
--- NOTE | 2019-03-13 07:12 | NUR ---
Received Palliative order, [facility] to [facility].
[2019-03-13 07:26] VITALS: BP 126/68
--- NOTE | 2019-03-13 07:30 | NUR ---
EVETTE received call from Kristen Rios-KENISHA. PODIATRIC SURGEON explained why the patient was brought into the hospital. Patient is short term at [facility]. -EVETTE Bravo
--- NOTE | 2019-03-13 09:45 | NUR ---
ZOSYN DOSE NOT YET AVAILIBLE, PHARMACY HAS BEEN NOTIFIED EARLIER BEFORE MED WAS DUE.
[2019-03-13] MEDS ORDERED: AMINOPHYLLIN200 MG PO (10:06)
[2019-03-13] MEDS ORDERED: COREG6.25 MG PO (10:08)
--- NOTE | 2019-03-13 10:15 | NUR ---
PT REMAINS A&OX3.
[2019-03-13 10:56] VITALS: BP 116/74
--- NOTE | 2019-03-13 11:22 | NUR ---
ALTHOUGH UNCLEAR PREVIOUSLY, I NOW DISCOVER THAT THIS EDHOLD PT IS TO BE DISCHARGED BACK TO [facility] AND THE ONLY DIRECTIONS ARE TO FOLLOW UP WITH DR CHANG.
[2019-03-14 22:03] LABS: TOTAL (AMI + NOR) <40 ng/mL (80-200)
== END 2019-03-13 11:34 | DRG 314 ==
LOC: ED → EDHOLD 03-13 00:37
PROVIDERS: Emergency Medicine; Student in an Organized Health Care Education/Training Program; ADMIT Family Medicine
DX: I95.9 Hypotension, unspecified (principal); G93.41 Metabolic encephalopathy; N18.6 End stage renal disease; E43 Unspecified severe protein-calorie malnutrition; N39.0 Urinary tract infection, site not specified; I50.32 Chronic diastolic (congestive) heart failure; I13.2 Hypertensive heart and chronic kidney disease with heart failure and with stage 5 chronic kidney disease, or end stage renal disease; Z94.4 Liver transplant status; N40.0 Benign prostatic hyperplasia without lower urinary tract symptoms; K74.60 Unspecified cirrhosis of liver; F32.9 Major depressive disorder, single episode, unspecified; E88.09 Other disorders of plasma-protein metabolism, not elsewhere classified; I34.1 Nonrheumatic mitral (valve) prolapse; D63.8 Anemia in other chronic diseases classified elsewhere; K21.9 Gastro-esophageal reflux disease without esophagitis; I48.0 Paroxysmal atrial fibrillation; Z96.1 Presence of intraocular lens; J84.10 Pulmonary fibrosis, unspecified; I35.0 Nonrheumatic aortic (valve) stenosis; D53.9 Nutritional anemia, unspecified; L89.312 Pressure ulcer of right buttock, stage 2; Z99.2 Dependence on renal dialysis; Z86.718 Personal history of other venous thrombosis and embolism; Z79.899 Other long term (current) drug therapy; Z79.01 Long term (current) use of anticoagulants; Z91.81 History of falling; Z86.73 Personal history of transient ischemic attack (TIA), and cerebral infarction without residual deficits; Z95.2 Presence of prosthetic heart valve; Z98.49 Cataract extraction status, unspecified eye; Z87.891 Personal history of nicotine dependence; Z82.49 Family history of ischemic heart disease and other diseases of the circulatory system; Z83.3 Family history of diabetes mellitus; Z80.8 Family history of malignant neoplasm of other organs or systems; Z82.0 Family history of epilepsy and other diseases of the nervous system; Z84.89 Family history of other specified conditions